=== PATIENT | female | born 1965 | race African-American/Black ===

== ENCOUNTER 2021-06-11 20:12 | Inpatient (IN) | payer OTHER, MEDICAID ==
[~2021-06-11] VITALS: Ht 180.3 cm; Wt 92.6 kg
[2021-06-11 21:56] LABS: Albumin 3.2 g/dL (3.4-5.0); Calcium 7.8 mg/dL (8.5-10.1); Potassium 3.5 mmol/L (3.5-5.1)
[2021-06-11 21:58] LABS: Lactic Acid w/Reflex 4.1 mmol/L (0.4-2.0)
[2021-06-11 21:59] LABS: BUN/Creatinine Ratio 9.1; Basophils # (auto) 0 10 ^3/uL (0-0.2); Basophils % (auto) 0.5 % (0.0-2.0); Eosinophils # (auto) 0 10 ^3/uL (0-0.8); Eosinophils % (auto) 0.6 % (0.0-7.0); Hematocrit 30.1 % (36.0-46.0); Hemoglobin 9.3 g/dL (12.2-16.2); Lymphocytes # (auto) 1.3 10 ^3/uL (0.4-5.4); Lymphocytes % (auto) 16.9 % (10.0-50.0); Mean Corpuscular Hemoglobin 28.6 pg (28.0-32.0); Mean Corpuscular Volume 92.3 fL (80.0-100.0); Monocytes # (auto) 0.5 10 ^3/uL (0-1.3); Monocytes % (auto) 6.5 % (0.0-12.0); Neutrophils % (auto) 75.5 % (37.0-80.0); Nucleated Red Blood Cells % 0.2 %; Red Blood Cells 3.26 10^6/uL (4.0-5.20); Red Cell Distribution Width 25.1 % (11.8-14.3)
[2021-06-11] MEDS ORDERED: SODIUM CHLORIDE 0.9% 1,000 ML IV ONE ×2 (22:00→22:45)
[2021-06-11 22:01] LABS: Bilirubin, Total 0.3 mg/dL (0.2-1.0); Total Protein 6.8 g/dL (6.4-8.2)
[2021-06-11] MEDS ORDERED: cefTRIAXone 1GM/50ML D5W 50 ML IV ONE (22:45)
[2021-06-12] MEDS ORDERED: SODIUM CHLORIDE 0.9% 1,000 ML IV ONE (01:00)
[2021-06-12 01:35] LABS: Urine Bacteria NONE SEEN /hpf (None Seen); Urine Blood Negative /uL (Negative); Urine Mucus FEW (None Seen); Urine Specific Gravity 1.023 (1.001-1.035); Urine WBC 9 /hpf (0 - 5)
[2021-06-12] MEDS ORDERED: ONDANSETRON HCL 4 MG/2 ML VIAL IV ONE (02:00)
[2021-06-12] MEDS ORDERED: PIPERACILLIN-TAZOB 3.375GM 100 ML IV ONE (02:00)
[2021-06-12] MEDS ORDERED: fentaNYL CITRATE 100 MCG/2 ML VL IV ONE (02:00)
[2021-06-12 04:46] LABS: Lactic Acid w/Reflex 3.1 mmol/L (0.4-2.0)
[2021-06-12] MEDS ORDERED: KEP500T PO (05:35)
[2021-06-12] MEDS ORDERED: GABA300C PO (05:35)
[2021-06-12] MEDS ORDERED: DULO20CA PO (05:35)
[2021-06-12] MEDS ORDERED: DABI150C5 PO (05:35)
[2021-06-12] MEDS ORDERED: TOPI50TA32 PO (05:35)
[2021-06-12] MEDS ORDERED: BACL20TA PO (05:35)
[2021-06-12] MEDS ORDERED: ALBUMIN 5% 250 ML IV ONE (06:30)
[2021-06-12] MEDS ORDERED: ONDANSETRON HCL 4 MG/2 ML VIAL IV PRN (06:30)
[2021-06-12 08:04] LABS: INR 1.04 (0.9-1.15)
[2021-06-12] MEDS: PANTOPRAZOLE 40 MG TAB PO SCH (08:05)
[2021-06-12] MEDS: DULoxetine HCL 30 MG CAP PO SCH (08:05)
[2021-06-12] MEDS: TOPIRAMATE 25 MG TAB PO SCH (08:05)
[2021-06-12] MEDS: cefTRIAXone 1GM/50ML D5W 50 ML IV SCH (08:06)
[2021-06-12 08:12] VITALS: BP 104/71
[2021-06-12 09:00] VITALS: BP 104/71
[2021-06-12] MEDS: DABIGATRAN 75 MG CAP PO SCH ×2 (11:00→23:41)
[2021-06-12] MEDS: HYDROmorphone HCL 2 MG/ML VL IV PRN ×3 (12:33→20:55)
[2021-06-12 13:00] VITALS: BP 111/71
[2021-06-12] MEDS: diphenhdrAMINE HCL 25 MG CAP PO PRN (14:22)
[2021-06-12] MEDS: GABAPENTIN 300 MG CAP PO SCH ×2 (14:22→23:41)
[2021-06-12 17:00] VITALS: BP_SYST 107; BP_SYST 140; BP_DIAS 65; BP_DIAS 81
[2021-06-12] MEDS: BACLOFEN 10 MG TAB PO PRN (20:56)
[2021-06-12 22:00] VITALS: BP 106/59
[2021-06-12] MEDS ORDERED: VANCOMYCIN PER PHARMACY 0 MG IV SCH (23:30)
[2021-06-12] MEDS: levETIRAcetam 500 MG TAB PO SCH (23:40)
[2021-06-12] MEDS ORDERED: VANCOMYCIN 1GM/250ML 250 ML IV ONE (23:45)
[2021-06-13] MEDS: HYDROmorphone HCL 2 MG/ML VL IV PRN ×5 (03:11→22:32)
[2021-06-13 05:00] VITALS: BP 163/80
[2021-06-13] MEDS: GABAPENTIN 300 MG CAP PO SCH ×3 (05:27→21:19)
[2021-06-13 06:16] LABS: Basophils # (auto) 0 10 ^3/uL (0-0.2); Basophils % (auto) 0.7 % (0.0-2.0); Eosinophils # (auto) 0.2 10 ^3/uL (0-0.8); Eosinophils % (auto) 3.5 % (0.0-7.0); Hematocrit 31.7 % (36.0-46.0); Hemoglobin 9.9 g/dL (12.2-16.2); Lymphocytes # (auto) 1.7 10 ^3/uL (0.4-5.4); Lymphocytes % (auto) 30.3 % (10.0-50.0); Mean Corpuscular Hemoglobin 28.9 pg (28.0-32.0); Mean Corpuscular Hgb Conc. 31.4 g/dL (32.0-36.0); Mean Corpuscular Volume 91.9 fL (80.0-100.0); Monocytes # (auto) 0.4 10 ^3/uL (0-1.3); Monocytes % (auto) 6.9 % (0.0-12.0); Neutrophils # (auto) 3.3 10 ^3/uL (1.6-8.6); Neutrophils % (auto) 58.6 % (37.0-80.0); Nucleated Red Blood Cells % 0.3 %; Red Blood Cells 3.44 10^6/uL (4.0-5.20); White Blood Cell 5.6 10^3/uL (4.4-10.8)
[2021-06-13 08:12] LABS: Potassium 4.8 mmol/L (3.5-5.1)
[2021-06-13 08:13] LABS: BUN/Creatinine Ratio 8.1; Bilirubin, Total 0.4 mg/dL (0.2-1.0); Calcium 8.7 mg/dL (8.5-10.1); Total Protein 6.4 g/dL (6.4-8.2)
[2021-06-13] MEDS: DABIGATRAN 75 MG CAP PO SCH ×2 (08:52→21:19)
[2021-06-13] MEDS: TOPIRAMATE 25 MG TAB PO SCH (08:52)
[2021-06-13] MEDS: PANTOPRAZOLE 40 MG TAB PO SCH (08:52)
[2021-06-13] MEDS: DULoxetine HCL 30 MG CAP PO SCH (08:52)
[2021-06-13] MEDS: cefTRIAXone 1GM/50ML D5W 50 ML IV SCH (09:06)
[2021-06-13] MEDS: diphenhdrAMINE HCL 25 MG CAP PO PRN ×2 (10:28→23:14)
[2021-06-13] MEDS: VANCOMYCIN 1GM/250ML 250 ML IV SCH ×2 (13:00→23:14)
[2021-06-13] MEDS: BACLOFEN 10 MG TAB PO PRN (16:39)
[2021-06-13 17:00] VITALS: BP 150/88
[2021-06-13] MEDS: levETIRAcetam 500 MG TAB PO SCH (21:19)
[2021-06-13 22:00] VITALS: BP 124/69
[2021-06-14] MEDS: HYDROmorphone HCL 2 MG/ML VL IV PRN ×5 (02:33→21:15)
[2021-06-14 05:00] VITALS: BP 107/62
[2021-06-14] MEDS: GABAPENTIN 300 MG CAP PO SCH ×3 (05:22→21:13)
[2021-06-14] MEDS: cefTRIAXone 1GM/50ML D5W 50 ML IV SCH (08:00)
[2021-06-14 09:00] VITALS: BP 170/78
[2021-06-14] MEDS: VANCOMYCIN 1GM/250ML 250 ML IV SCH ×3 (09:30→19:10)
[2021-06-14] MEDS: DULoxetine HCL 30 MG CAP PO SCH (10:46)
[2021-06-14] MEDS: DABIGATRAN 75 MG CAP PO SCH ×2 (10:47→21:13)
[2021-06-14] MEDS: PANTOPRAZOLE 40 MG TAB PO SCH (10:47)
[2021-06-14] MEDS: TOPIRAMATE 25 MG TAB PO SCH (10:47)
[2021-06-14 13:00] VITALS: BP 109/69
[2021-06-14 17:00] VITALS: BP 105/64
[2021-06-14] MEDS: BACLOFEN 10 MG TAB PO PRN (18:34)
[2021-06-14] MEDS: levETIRAcetam 500 MG TAB PO SCH (21:13)
[2021-06-14] MEDS: diphenhdrAMINE HCL 25 MG CAP PO PRN (21:30)
[2021-06-14 22:00] VITALS: BP 120/74
[2021-06-15] MEDS: HYDROmorphone HCL 2 MG/ML VL IV PRN ×4 (01:18→13:54)
[2021-06-15 05:00] VITALS: BP 108/64
[2021-06-15] MEDS: GABAPENTIN 300 MG CAP PO SCH ×2 (05:23→14:00)
[2021-06-15] MEDS: VANCOMYCIN 1GM/250ML 250 ML IV SCH ×2 (05:24→15:00)
[2021-06-15 09:07] VITALS: BP 118/69
[2021-06-15] MEDS: DABIGATRAN 75 MG CAP PO SCH (09:43)
[2021-06-15] MEDS: DULoxetine HCL 30 MG CAP PO SCH (09:43)
[2021-06-15] MEDS: cefTRIAXone 1GM/50ML D5W 50 ML IV SCH (09:43)
[2021-06-15] MEDS: TOPIRAMATE 25 MG TAB PO SCH (09:43)
[2021-06-15] MEDS: PANTOPRAZOLE 40 MG TAB PO SCH (09:43)
[2021-06-15] MEDS ORDERED: LEVO500T31 PO (10:13)
[2021-06-15] MEDS ORDERED: HYDR4TAB90 PO (10:17)
[2021-06-15 12:45] VITALS: BP 112/64
[2021-06-15 13:00] VITALS: BP 97/64
[2021-06-15 14:24] VITALS: BP 110/72
== END 2021-06-15 17:43 | disposition home or self-care (01) | DRG 872 ==
LOC: ER 20:14 → OVERFLOW 06-12 06:26 → WEST WING 06-12 07:54
PROVIDERS: ADMIT Nurse Practitioner; ATTEND Family Medicine
DX: A41.89 Other specified sepsis (principal); N39.0 Urinary tract infection, site not specified; E44.0 Moderate protein-calorie malnutrition; M79.7 Fibromyalgia; G89.29 Other chronic pain; Z20.822 Contact with and (suspected) exposure to COVID-19; R56.9 Unspecified convulsions; Z86.718 Personal history of other venous thrombosis and embolism; Z79.01 Long term (current) use of anticoagulants; Z86.711 Personal history of pulmonary embolism; Z88.5 Allergy status to narcotic agent; Z88.8 Allergy status to other drugs, medicaments and biological substances; Z68.26 Body mass index [BMI] 26.0-26.9, adult
CPT/HCPCS: 36415; 71045; 74176; 80053; 80202; 81001; 82565; 83605; 83735; 83880; 84484; 85025; 85610; 87040; 87077; 87086; 87186; 93005; 93970; 96361; 96365; 96367; 96375; 99291; G0378; J0696; J2405; J2543

== ENCOUNTER 2021-07-07 20:21 | Emergency (ER) | payer OTHER, MEDICAID ==
[~2021-07-07 20:21] MED LIST: BACL20TA PO; DABI150C5 PO; DULO20CA PO; GABA300C PO; HYDR4TAB90 PO; KEP500T PO; LEVO500T31 PO; TOPI50TA32 PO
[2021-07-07 23:29] LABS: Basophils # (auto) 0 10 ^3/uL (0-0.2); Basophils % (auto) 0.5 % (0.0-2.0); Eosinophils # (auto) 0 10 ^3/uL (0-0.8); Eosinophils % (auto) 0.1 % (0.0-7.0); Hematocrit 29.6 % (36.0-46.0); Hemoglobin 9.3 g/dL (12.2-16.2); Lymphocytes # (auto) 1.1 10 ^3/uL (0.4-5.4); Lymphocytes % (auto) 17.5 % (10.0-50.0); Mean Corpuscular Hemoglobin 28.9 pg (28.0-32.0); Mean Corpuscular Hgb Conc. 31.5 g/dL (32.0-36.0); Mean Corpuscular Volume 91.5 fL (80.0-100.0); Monocytes # (auto) 0.5 10 ^3/uL (0-1.3); Monocytes % (auto) 8.5 % (0.0-12.0); Neutrophils # (auto) 4.7 10 ^3/uL (1.6-8.6); Neutrophils % (auto) 73.4 % (37.0-80.0); Nucleated Red Blood Cells % 0.1 %; Red Blood Cells 3.24 10^6/uL (4.0-5.20); Red Cell Distribution Width 25.9 % (11.8-14.3); White Blood Cell 6.4 10^3/uL (4.4-10.8)
[2021-07-07] MEDS ORDERED: ONDANSETRON HCL 4 MG/2 ML VIAL IV ONE (23:30)
[2021-07-07] MEDS ORDERED: MORPHINE SULFATE INJECTION 2 MG/ML SYRG IV ONE (23:30)
[2021-07-07 23:45] LABS: INR 0.99 (0.9-1.15); Partial Thromboplastin Time 21.1 sec (23.6-33.0)
[2021-07-07 23:50] LABS: Albumin 3.2 g/dL (3.4-5.0); Calcium 7.7 mg/dL (8.5-10.1); Magnesium 2.3 mg/dL (1.6-2.6); Potassium 3.3 mmol/L (3.5-5.1)
[2021-07-07 23:52] LABS: BUN/Creatinine Ratio 10.1
[2021-07-07 23:55] LABS: Bilirubin, Total 0.4 mg/dL (0.2-1.0); Total Protein 6.4 g/dL (6.4-8.2)
[2021-07-08 02:33] LABS: Partial Thromboplastin Time 20.1 sec (23.6-33.0)
[2021-07-08] MEDS ORDERED: fentaNYL CITRATE 100 MCG/2 ML VL IV ONE (02:45)
[2021-07-08] MEDS ORDERED: IOHEXOL 350 MG/ML 100ML IJ ONE (03:06)
[2021-07-08 05:00] VITALS: BP 103/63
== END 2021-07-08 05:15 | disposition left against medical advice (07) ==
LOC: EDBD 20:21 → ER 20:24
DX: R00.0 Tachycardia, unspecified (principal); R22.41 Localized swelling, mass and lump, right lower limb; J44.9 Chronic obstructive pulmonary disease, unspecified; G43.909 Migraine, unspecified, not intractable, without status migrainosus; Z86.718 Personal history of other venous thrombosis and embolism; Z20.822 Contact with and (suspected) exposure to COVID-19
CPT/HCPCS: 36415; 71046; 71275; 80053; 83735; 83880; 84484; 85025; 85379; 85610; 85730; 87426; 93005; 96374; 96375; 99285; J2270; J2405; J3010; Q9967

== ENCOUNTER 2021-11-06 20:34 | Inpatient (IN) | payer OTHER, MEDICAID ==
[~2021-11-06] VITALS: Ht 167.6 cm; Wt 93.7 kg
[2021-11-06] MEDS ORDERED: LORazepam MDV 2MG/ML 10 ML IV ONE (21:12)
[2021-11-06] MEDS ORDERED: levETIRAcetam 500 MG/5ML INJ IV ONE (21:14)
[2021-11-06] MEDS ORDERED: IOHEXOL 350 MG/ML 100ML IJ ONE (21:24)
[2021-11-06 22:02] LABS: BUN/Creatinine Ratio 17.8; Calcium 7.4 mg/dL (8.5-10.1); Potassium 3.4 mmol/L (3.5-5.1)
[2021-11-06 22:04] LABS: Bilirubin, Total 0.2 mg/dL (0.2-1.0); Total Protein 6.3 g/dL (6.4-8.2)
[2021-11-06] MEDS ORDERED: KETAMINE HCL 10 ML ONE (22:23)
[2021-11-06] MEDS ORDERED: KETAMINE 50mg/ML 10ml Vial (500mg/10ml) IM ONE (22:30)
[2021-11-06 23:03] LABS: Amphetamine Screen, Urine NEGATIVE (NEGATIVE); Barbiturate Scree,Urine NEGATIVE (NEGATIVE); Benzodiazephine Screen, Urine POSITIVE (NEGATIVE); Cocaine Screen, Urine NEGATIVE (NEGATIVE); Opiate Scree,Urine NEGATIVE (NEGATIVE); Phencyclidine Screen, Urine NEGATIVE (NEGATIVE)
[2021-11-06 23:10] LABS: Cannabinoid Screen, Urine NEGATIVE (NEGATIVE)
[2021-11-06 23:22] LABS: Mean Corpuscular Hemoglobin 27.1 pg (28.0-32.0); Mean Corpuscular Hgb Conc. 28.2 g/dL (32.0-36.0); Red Blood Cells 3.34 10^6/uL (4.0-5.20); Red Cell Distribution Width 27.6 % (11.8-14.3); White Blood Cell 6.6 10^3/uL (4.4-10.8)
[2021-11-06 23:27] LABS: Basophils % (manual) 0 (0.0-2.0); Blast Cells 0; Metamyelocytes % 0; Myelocytes % 0; Promyelocytes % 0; Reactive Lymphocytes 0
[2021-11-06 23:34] LABS: Urine Bacteria FEW /hpf (None Seen); Urine Blood TRACE /uL (Negative); Urine Hyaline Cast FEW /lpf (0 - 2); Urine Mucus FEW (None Seen); Urine Specific Gravity 1.036 (1.001-1.035); Urine WBC 15 /hpf (0 - 5)
[2021-11-07] VITALS (65 sets, daily range): BP systolic 77–136; BP diastolic 39–73
[2021-11-07] MEDS ORDERED: SODIUM CHLORIDE 0.9% 2,000 ML IV ONE
[2021-11-07] MEDS ORDERED: LORazepam 2MG/ML-1ML VIAL IV ONE ×3
[2021-11-07 00:03] LABS: Band Neutrophils % (manual) 1; Eosinophils % (manual) 1 (0-7); Lymphocytes % (manual) 35 (10.0-50.0); Monocytes % (manual) 2 (0-12)
[2021-11-07] MEDS ORDERED: DOCUSATE SOD 100 MG CAP PO PRN (00:30)
[2021-11-07] MEDS ORDERED: LORazepam 0.5 MG TAB PO PRN (00:30)
[2021-11-07] MEDS ORDERED: ONDANSETRON HCL 4 MG/2 ML VIAL IV PRN (00:30)
[2021-11-07] MEDS: SODIUM CHLORIDE 0.9% 1,000 ML IV SCH ×2 (00:59→17:19)
[2021-11-07] MEDS: levoFLOXacin 500MG 100 ML IV SCH ×2 (01:55→21:35)
[2021-11-07] MEDS: NOREPINEPHRINE 8 MG/250ML KIT 250 ML IV SCH ×2 (02:36→13:22)
[2021-11-07 04:33] LABS: Eosinophils # (auto) 0 10 ^3/uL (0-0.8); Hemoglobin 8.8 g/dL (12.2-16.2); Mean Corpuscular Hemoglobin 27.7 pg (28.0-32.0); Nucleated Red Blood Cells % 0.1 %
[2021-11-07 04:36] LABS: Basophils # (auto) 0.1 10 ^3/uL (0-0.2); Basophils % (auto) 0.8 % (0.0-2.0); Eosinophils % (auto) 0.1 % (0.0-7.0); Hematocrit 30.1 % (36.0-46.0); Lymphocytes # (auto) 0.8 10 ^3/uL (0.4-5.4); Lymphocytes % (auto) 9.1 % (10.0-50.0); Mean Corpuscular Hgb Conc. 29.2 g/dL (32.0-36.0); Mean Corpuscular Volume 94.9 fL (80.0-100.0); Monocytes # (auto) 0.4 10 ^3/uL (0-1.3); Monocytes % (auto) 4.8 % (0.0-12.0); Neutrophils # (auto) 7.6 10 ^3/uL (1.6-8.6); Neutrophils % (auto) 85.2 % (37.0-80.0); Red Blood Cells 3.18 10^6/uL (4.0-5.20)
[2021-11-07 04:38] LABS: Red Cell Distribution Width 26.5 % (11.8-14.3)
[2021-11-07 05:08] LABS: BUN/Creatinine Ratio 20.3; Calcium 7.5 mg/dL (8.5-10.1); Potassium 3.8 mmol/L (3.5-5.1)
[2021-11-07] MEDS: LORazepam 2MG/ML-1ML VIAL IV PRN ×5 (06:50→22:05)
[2021-11-07] MEDS ORDERED: TOPI50TA53 PO (11:17)
[2021-11-07] MEDS ORDERED: LEVE500T32 PO (11:38)
[2021-11-07] MEDS ORDERED: DABI150C5 PO (11:41)
[2021-11-07] MEDS ORDERED: PANT40TA2 PO (11:43)
[2021-11-07] MEDS ORDERED: ONDA-144 PO (11:43)
[2021-11-07] MEDS ORDERED: HYDROcodone-ACET 5/325MG TAB PO PRN (11:45)
[2021-11-07] MEDS ORDERED: PANTOPRAZOLE 40 MG TAB PO ONE (11:45)
[2021-11-07] MEDS ORDERED: SUMA50TA2 PO (11:45)
[2021-11-07] MEDS ORDERED: THIAMINE 100mg/ml INJ (200mg/2ml VIAL) IV ONE (11:45)
[2021-11-07] MEDS ORDERED: chlordiazePOXIDE HCL 5 MG CAP PO PRN (11:45)
[2021-11-07] MEDS ORDERED: HYDROcodone-ACET 5/325MG TAB PO ONE (11:45)
[2021-11-07] MEDS: GABAPENTIN 300 MG CAP PO SCH ×2 (13:20→21:33)
[2021-11-07] MEDS: PANTOPRAZOLE 40 MG TAB PO SCH (21:33)
[2021-11-07] MEDS: TOPIRAMATE 100 MG TAB PO SCH (22:10)
[2021-11-07] MEDS ORDERED: NITROGLYCERIN 0.4 MG SL TAB SL PRN (23:15)
[2021-11-08] VITALS (91 sets, daily range): BP systolic 85–118; BP diastolic 46–68
[2021-11-08 03:42] LABS: Eosinophils # (auto) 0.1 10 ^3/uL (0-0.8); Hematocrit 25.1 % (36.0-46.0); Hemoglobin 7.6 g/dL (12.2-16.2); Lymphocytes # (auto) 1.4 10 ^3/uL (0.4-5.4)
[2021-11-08 03:44] LABS: Basophils # (auto) 0.1 10 ^3/uL (0-0.2); Basophils % (auto) 0.9 % (0.0-2.0); Eosinophils % (auto) 1.2 % (0.0-7.0); Lymphocytes % (auto) 24.8 % (10.0-50.0); Mean Corpuscular Hemoglobin 27.8 pg (28.0-32.0); Mean Corpuscular Hgb Conc. 30.2 g/dL (32.0-36.0); Mean Corpuscular Volume 92.3 fL (80.0-100.0); Monocytes # (auto) 0.6 10 ^3/uL (0-1.3); Monocytes % (auto) 10.7 % (0.0-12.0); Neutrophils # (auto) 3.5 10 ^3/uL (1.6-8.6); Neutrophils % (auto) 62.4 % (37.0-80.0); Nucleated Red Blood Cells % 0.2 %; Red Blood Cells 2.72 10^6/uL (4.0-5.20); White Blood Cell 5.7 10^3/uL (4.4-10.8)
[2021-11-08 03:54] LABS: Red Cell Distribution Width 27.6 % (11.8-14.3)
[2021-11-08 03:56] LABS: Albumin 2.5 g/dL (3.4-5.0); BUN/Creatinine Ratio 15.6; Calcium 7.6 mg/dL (8.5-10.1); Potassium 3.9 mmol/L (3.5-5.1)
[2021-11-08 04:00] LABS: Bilirubin, Total 0.5 mg/dL (0.2-1.0); Total Protein 5.3 g/dL (6.4-8.2)
[2021-11-08] MEDS: GABAPENTIN 300 MG CAP PO SCH ×3 (06:32→22:36)
[2021-11-08] MEDS: NOREPINEPHRINE 8 MG/250ML KIT 250 ML IV SCH ×2 (07:48→19:56)
[2021-11-08] MEDS ORDERED: ENOXAPARIN SOD 40 MG/0.4 ML SYRINGE SC ONE (10:00)
[2021-11-08] MEDS ORDERED: SUCRALFATE 1 GM/10 ML ORAL SUSP PO ONE (10:00)
[2021-11-08] MEDS: HYDROmorphone HCL 2 MG/ML VL/or syr IV PRN ×2 (10:01→20:53)
[2021-11-08] MEDS: TOPIRAMATE 100 MG TAB PO SCH ×2 (10:12→22:26)
[2021-11-08] MEDS: PANTOPRAZOLE 40 MG TAB PO SCH ×2 (10:13→22:26)
[2021-11-08] MEDS: THIAMINE 100mg/ml INJ (200mg/2ml VIAL) IV SCH (10:13)
[2021-11-08] MEDS ORDERED: SODIUM CHLORIDE 0.9% 250 ML IV ONE (10:15)
[2021-11-08] MEDS: SODIUM CHLORIDE 0.9% 1,000 ML IV SCH ×2 (10:15→22:06)
[2021-11-08] MEDS: LORazepam 2MG/ML-1ML VIAL IV PRN ×3 (12:05→16:30)
[2021-11-08] MEDS ORDERED: NALBUPHINE HCL 10 MG/1ml INJECTION IV ONE (12:15)
[2021-11-08] MEDS ORDERED: NALBUPHINE HCL 10 MG/1ml INJECTION IV PRN (12:45)
[2021-11-08] MEDS: SUCRALFATE 1 GM/10 ML ORAL SUSP PO SCH (17:00)
[2021-11-08] MEDS: levoFLOXacin 500MG 100 ML IV SCH (22:22)
[2021-11-09] VITALS (93 sets, daily range): BP systolic 75–119; BP diastolic 45–73
[2021-11-09] MEDS: HYDROmorphone HCL 2 MG/ML VL/or syr IV PRN ×4 (04:30→22:02)
[2021-11-09] MEDS: GABAPENTIN 300 MG CAP PO SCH ×3 (06:01→22:00)
[2021-11-09] MEDS: SUCRALFATE 1 GM/10 ML ORAL SUSP PO SCH ×3 (06:01→16:51)
[2021-11-09] MEDS: PANTOPRAZOLE 40 MG TAB PO SCH ×2 (09:08→22:01)
[2021-11-09] MEDS: SODIUM CHLORIDE 0.9% 1,000 ML IV SCH ×2 (09:08→16:17)
[2021-11-09] MEDS: THIAMINE 100mg/ml INJ (200mg/2ml VIAL) IV SCH (09:08)
[2021-11-09] MEDS: TOPIRAMATE 100 MG TAB PO SCH ×2 (09:08→22:01)
[2021-11-09 09:46] LABS: Basophils # (auto) 0.1 10 ^3/uL (0-0.2); Eosinophils # (auto) 0.2 10 ^3/uL (0-0.8); Lymphocytes # (auto) 1.2 10 ^3/uL (0.4-5.4); Monocytes # (auto) 0.4 10 ^3/uL (0-1.3); White Blood Cell 4.7 10^3/uL (4.4-10.8)
[2021-11-09 09:48] LABS: Basophils % (auto) 1.3 % (0.0-2.0); Hematocrit 27.5 % (36.0-46.0); Hemoglobin 8.2 g/dL (12.2-16.2); Lymphocytes % (auto) 25.7 % (10.0-50.0); Mean Corpuscular Hemoglobin 28.3 pg (28.0-32.0); Mean Corpuscular Hgb Conc. 29.7 g/dL (32.0-36.0); Mean Corpuscular Volume 95.1 fL (80.0-100.0); Monocytes % (auto) 9.4 % (0.0-12.0); Neutrophils # (auto) 2.8 10 ^3/uL (1.6-8.6); Neutrophils % (auto) 59.6 % (37.0-80.0); Red Blood Cells 2.89 10^6/uL (4.0-5.20); Red Cell Distribution Width 27.5 % (11.8-14.3)
[2021-11-09] MEDS ORDERED: ENOXAPARIN SOD 40 MG/0.4 ML SYRINGE SC SCH (10:00)
[2021-11-09 10:42] LABS: Albumin 2.6 g/dL (3.4-5.0); Calcium 7.7 mg/dL (8.5-10.1)
[2021-11-09 10:45] LABS: BUN/Creatinine Ratio 6.5; Bilirubin, Total 0.6 mg/dL (0.2-1.0); Potassium 4.2 mmol/L (3.5-5.1); Total Protein 5.6 g/dL (6.4-8.2)
[2021-11-09] MEDS: NOREPINEPHRINE 8 MG/250ML KIT 250 ML IV SCH (10:46)
[2021-11-09] MEDS: LORazepam 2MG/ML-1ML VIAL IV PRN ×3 (12:17→17:26)
[2021-11-09] MEDS ORDERED: ERTAPENEM SOD INJ 1 GM in SODIUM CHL 0.9% 50 ML IV ONE (15:15)
[2021-11-09] MEDS ORDERED: Ensure HIGH Protein Chocolate 8oz Bottle PO SCH (18:00)
[2021-11-09] MEDS: Glucerna Carbsteady SHAKE Vanilla 8oz PO SCH (18:01)
[2021-11-09] MEDS: levETIRAcetam 500 MG TAB PO SCH (22:00)
[2021-11-10] VITALS (82 sets, daily range): BP systolic 81–108; BP diastolic 42–72
[2021-11-10] MEDS: SODIUM CHLORIDE 0.9% 1,000 ML IV SCH (03:45)
[2021-11-10] MEDS: NOREPINEPHRINE 8 MG/250ML KIT 250 ML IV SCH ×2 (04:43→21:12)
[2021-11-10] MEDS: SUCRALFATE 1 GM/10 ML ORAL SUSP PO SCH ×3 (06:15→17:03)
[2021-11-10] MEDS: HYDROmorphone HCL 2 MG/ML VL/or syr IV PRN ×3 (06:15→17:04)
[2021-11-10] MEDS: GABAPENTIN 300 MG CAP PO SCH ×3 (06:16→21:10)
[2021-11-10] MEDS: levETIRAcetam 500 MG TAB PO SCH ×2 (06:16→21:10)
[2021-11-10] MEDS ORDERED: SODIUM CHLORIDE LOCK 0 ML ONE (08:52)
[2021-11-10] MEDS ORDERED: LIDOCAINE VISCOUS 2% 15ML UD ONE (08:52)
[2021-11-10] MEDS ORDERED: MIDAZOLAM HCL 5 MG/ML-1ML VIAL ONE (08:52)
[2021-11-10] MEDS ORDERED: fentaNYL CITRATE 100 MCG/2 ML VL ONE (08:53)
[2021-11-10] MEDS ORDERED: diphenhdrAMINE HCL 50 MG/1 ML VL ONE (08:53)
[2021-11-10] MEDS: THIAMINE 100mg/ml INJ (200mg/2ml VIAL) IV SCH (09:01)
[2021-11-10] MEDS: ERTAPENEM SOD INJ 1 GM in SODIUM CHL 0.9% 50 ML IV SCH (09:01)
[2021-11-10] MEDS: PANTOPRAZOLE 40 MG TAB PO SCH ×2 (09:01→21:10)
[2021-11-10] MEDS: Glucerna Carbsteady SHAKE Vanilla 8oz PO SCH ×3 (09:01→19:22)
[2021-11-10] MEDS: TOPIRAMATE 100 MG TAB PO SCH ×2 (09:02→21:11)
[2021-11-10 09:49] LABS: INR 0.94 (0.9-1.15); Partial Thromboplastin Time 23.8 sec (24.6-33.4)
[2021-11-10 10:07] LABS: BUN/Creatinine Ratio 8.3; Calcium 7.7 mg/dL (8.5-10.1); Potassium 3.7 mmol/L (3.5-5.1)
[2021-11-10 10:18] LABS: Folate (Folic Acid) 5.56 ng/mL (5.38-24)
[2021-11-10 10:28] LABS: % Iron Saturation 7.8 % (15-50)
[2021-11-10 10:41] LABS: Basophils # (auto) 0.2 10 ^3/uL (0-0.2); Basophils % (auto) 2.9 % (0.0-2.0); Eosinophils # (auto) 0.3 10 ^3/uL (0-0.8); Hematocrit 28.1 % (36.0-46.0); Hemoglobin 8.2 g/dL (12.2-16.2); Lymphocytes # (auto) 1.1 10 ^3/uL (0.4-5.4); Lymphocytes % (auto) 20.7 % (10.0-50.0); Mean Corpuscular Hemoglobin 28.7 pg (28.0-32.0); Mean Corpuscular Hgb Conc. 29.2 g/dL (32.0-36.0); Mean Corpuscular Volume 98.1 fL (80.0-100.0); Monocytes # (auto) 0.5 10 ^3/uL (0-1.3); Monocytes % (auto) 8.8 % (0.0-12.0); Neutrophils # (auto) 3.4 10 ^3/uL (1.6-8.6); Neutrophils % (auto) 62.6 % (37.0-80.0); Nucleated Red Blood Cells % 0.1 %; Red Blood Cells 2.87 10^6/uL (4.0-5.20); White Blood Cell 5.5 10^3/uL (4.4-10.8)
[2021-11-10] MEDS ORDERED: FUROSEMIDE 20 MG/2 ML VIAL IV ONE (11:45)
[2021-11-10] MEDS ORDERED: POTASSIUM CHL 20 Meq TABLET PO ONE (11:45)
[2021-11-10] MEDS ORDERED: FOLIC ACID 1 MG in D5W 5% 50 ML INJ ONE (11:45)
[2021-11-10] MEDS ORDERED: CYANOCOBALAMIN (B-12) 1000 MCG/1 ML VIAL IM ONE (11:45)
[2021-11-11] VITALS (93 sets, daily range): BP systolic 77–122; BP diastolic 39–73
[2021-11-11] MEDS: GABAPENTIN 300 MG CAP PO SCH ×3 (05:45→22:18)
[2021-11-11] MEDS: SUCRALFATE 1 GM/10 ML ORAL SUSP PO SCH ×3 (06:09→14:53)
[2021-11-11] MEDS: levETIRAcetam 500 MG TAB PO SCH ×2 (06:10→22:18)
[2021-11-11] MEDS: Glucerna Carbsteady SHAKE Vanilla 8oz PO SCH ×3 (07:45→16:57)
[2021-11-11 08:41] LABS: Basophils # (auto) 0 10 ^3/uL (0-0.2); Basophils % (auto) 0.2 % (0.0-2.0); Eosinophils # (auto) 0.3 10 ^3/uL (0-0.8); Eosinophils % (auto) 6.1 % (0.0-7.0); Hematocrit 26.4 % (36.0-46.0); Hemoglobin 8.1 g/dL (12.2-16.2); Lymphocytes # (auto) 0.9 10 ^3/uL (0.4-5.4); Lymphocytes % (auto) 19.9 % (10.0-50.0); Mean Corpuscular Hemoglobin 28.2 pg (28.0-32.0); Mean Corpuscular Hgb Conc. 30.7 g/dL (32.0-36.0); Mean Corpuscular Volume 91.8 fL (80.0-100.0); Monocytes # (auto) 0.4 10 ^3/uL (0-1.3); Monocytes % (auto) 7.7 % (0.0-12.0); Neutrophils # (auto) 3.1 10 ^3/uL (1.6-8.6); Neutrophils % (auto) 66.1 % (37.0-80.0); Nucleated Red Blood Cells % 0.1 %; Red Blood Cells 2.87 10^6/uL (4.0-5.20); White Blood Cell 4.8 10^3/uL (4.4-10.8)
[2021-11-11 08:42] LABS: Red Cell Distribution Width 26.9 % (11.8-14.3)
[2021-11-11] MEDS: THIAMINE 100mg/ml INJ (200mg/2ml VIAL) IV SCH (09:00)
[2021-11-11] MEDS: HYDROmorphone HCL 2 MG/ML VL/or syr IV PRN ×2 (09:00→16:57)
[2021-11-11] MEDS: TOPIRAMATE 100 MG TAB PO SCH ×2 (09:01→22:18)
[2021-11-11] MEDS: ERTAPENEM SOD INJ 1 GM in SODIUM CHL 0.9% 50 ML IV SCH (09:02)
[2021-11-11] MEDS: PANTOPRAZOLE 40 MG TAB PO SCH ×2 (09:02→22:18)
[2021-11-11] MEDS: FOLIC ACID 1 MG in D5W 5% 50 ML INJ SCH (09:36)
[2021-11-11 09:40] LABS: Potassium 3.9 mmol/L (3.5-5.1)
[2021-11-11 09:41] LABS: BUN/Creatinine Ratio 12.2; Calcium 7.9 mg/dL (8.5-10.1)
[2021-11-11] MEDS: CYANOCOBALAMIN (B-12) 1000 MCG/1 ML VIAL IM SCH (09:42)
[2021-11-11 10:39] LABS: Magnesium 1.8 mg/dL (1.6-2.6)
[2021-11-11] MEDS ORDERED: MORPHINE SULFATE INJ 2 MG/ml SYRG IV ONE (11:45)
[2021-11-11] MEDS ORDERED: MAGNESIUM SULFATE 1GM/100ML 100 ML IV ONE (12:00)
[2021-11-11] MEDS ORDERED: MIDODRINE HCL 10 MG TAB PO ONE (14:00)
[2021-11-11] MEDS: NOREPINEPHRINE 8 MG/250ML KIT 250 ML IV SCH (14:53)
[2021-11-11] MEDS: MIDODRINE HCL 10 MG TAB PO SCH (18:28)
[2021-11-11] MEDS: MORPHINE SULFATE INJ 2 MG/ml SYRG IV PRN (20:07)
[2021-11-12] VITALS (84 sets, daily range): BP systolic 74–111; BP diastolic 41–70
[2021-11-12] MEDS: MORPHINE SULFATE INJ 2 MG/ml SYRG IV PRN ×3 (04:03→23:23)
[2021-11-12 04:35] LABS: BUN/Creatinine Ratio 17.4; Calcium 8.1 mg/dL (8.5-10.1); Potassium 3.8 mmol/L (3.5-5.1)
[2021-11-12] MEDS: SUCRALFATE 1 GM/10 ML ORAL SUSP PO SCH ×3 (06:05→17:52)
[2021-11-12] MEDS: MIDODRINE HCL 10 MG TAB PO SCH (06:05)
[2021-11-12] MEDS: levETIRAcetam 500 MG TAB PO SCH ×2 (06:05→22:19)
[2021-11-12] MEDS: GABAPENTIN 300 MG CAP PO SCH ×3 (06:05→22:20)
[2021-11-12] MEDS: NOREPINEPHRINE 8 MG/250ML KIT 250 ML IV SCH ×2 (07:54→20:56)
[2021-11-12] MEDS: Glucerna Carbsteady SHAKE Vanilla 8oz PO SCH ×3 (08:00→17:52)
[2021-11-12] MEDS: TOPIRAMATE 100 MG TAB PO SCH ×2 (10:00→22:20)
[2021-11-12] MEDS: PANTOPRAZOLE 40 MG TAB PO SCH ×2 (10:00→22:20)
[2021-11-12] MEDS: THIAMINE HCL 100 MG TAB PO SCH (10:00)
[2021-11-12] MEDS: CYANOCOBALAMIN (B-12) 1000 MCG/1 ML VIAL IM SCH (10:19)
[2021-11-12] MEDS: FOLIC ACID 1 MG in D5W 5% 50 ML INJ SCH (10:20)
[2021-11-12] MEDS: ERTAPENEM SOD INJ 1 GM in SODIUM CHL 0.9% 50 ML IV SCH (10:20)
[2021-11-12] MEDS ORDERED: fentaNYL CITRATE 100 MCG/2 ML VL ONE (11:44)
[2021-11-12] MEDS ORDERED: MIDAZOLAM HCL 2MG/2ML 2ml VIAL (1mg/ml) ONE (11:44)
[2021-11-12] MEDS ORDERED: LIDOCAINE 2% (LOCAL ANESTH.) PF 5ml SDV ONE (11:45)
[2021-11-12] MEDS ORDERED: ONDANSETRON HCL 4 MG/2 ML VIAL ONE (11:45)
[2021-11-12] MEDS ORDERED: ONDANSETRON HCL 4 MG/2 ML VIAL IV PRN (12:30)
[2021-11-12] MEDS ORDERED: HYDROCORTISONE SOD SUCC 100 MG/2ML INJ VIAL IV ONE (12:45)
[2021-11-12] MEDS ORDERED: ONDANSETRON HCL 4 MG/2 ML VIAL IV ONE (13:46)
[2021-11-12] MEDS ORDERED: LIDOCAINE 2% (LOCAL ANESTH.) PF 5ml SDV IJ ONE (13:46)
[2021-11-12] MEDS ORDERED: PROPOFOL 10 MG/ML 20 ML IV ONE (13:46)
[2021-11-12] MEDS ORDERED: KETAMINE 50mg/ML 10ml Vial (500mg/10ml) IV ONE (13:46)
[2021-11-12] MEDS: HYDROmorphone HCL 2 MG/ML VL/or syr IV PRN ×2 (15:33→20:36)
[2021-11-12] MEDS: HYDROCORTISONE SOD SUCC 100 MG/2ML INJ VIAL IV SCH (22:19)
[2021-11-13] VITALS (92 sets, daily range): BP systolic 86–120; BP diastolic 49–72
[2021-11-13] MEDS: SUCRALFATE 1 GM/10 ML ORAL SUSP PO SCH ×3 (06:03→17:27)
[2021-11-13] MEDS: GABAPENTIN 300 MG CAP PO SCH ×3 (06:03→22:27)
[2021-11-13] MEDS: levETIRAcetam 500 MG TAB PO SCH ×2 (06:03→22:27)
[2021-11-13] MEDS: MORPHINE SULFATE INJ 2 MG/ml SYRG IV PRN ×4 (07:25→22:26)
[2021-11-13] MEDS: Glucerna Carbsteady SHAKE Vanilla 8oz PO SCH ×3 (08:43→18:45)
[2021-11-13] MEDS: HYDROmorphone HCL 2 MG/ML VL/or syr IV PRN ×3 (08:58→19:57)
[2021-11-13] MEDS: HYDROCORTISONE SOD SUCC 100 MG/2ML INJ VIAL IV SCH ×2 (08:58→22:00)
[2021-11-13] MEDS: THIAMINE HCL 100 MG TAB PO SCH (08:59)
[2021-11-13] MEDS: PANTOPRAZOLE 40 MG TAB PO SCH ×2 (08:59→22:28)
[2021-11-13] MEDS: ERTAPENEM SOD INJ 1 GM in SODIUM CHL 0.9% 50 ML IV SCH (09:37)
[2021-11-13] MEDS: FOLIC ACID 1 MG in D5W 5% 50 ML INJ SCH (09:38)
[2021-11-13] MEDS: TOPIRAMATE 100 MG TAB PO SCH ×2 (09:39→22:28)
[2021-11-13] MEDS: NOREPINEPHRINE 8 MG/250ML KIT 250 ML IV SCH ×2 (10:40→20:00)
[2021-11-13] MEDS: CYANOCOBALAMIN (B-12) 1000 MCG/1 ML VIAL IM SCH (12:23)
[2021-11-13] MEDS ORDERED: SODIUM FERR GLUC 62.5MG/5ML 125 MG in SODIUM CHL 0.9% 100 ML IV ONE (17:00)
[2021-11-14] VITALS (95 sets, daily range): BP systolic 81–114; BP diastolic 44–72
[2021-11-14] MEDS: HYDROmorphone HCL 2 MG/ML VL/or syr IV PRN ×4 (03:44→22:09)
[2021-11-14] MEDS: MORPHINE SULFATE INJ 2 MG/ml SYRG IV PRN ×3 (03:46→19:54)
[2021-11-14] MEDS: NOREPINEPHRINE 8 MG/250ML KIT 250 ML IV SCH ×2 (04:00→18:51)
[2021-11-14] MEDS: GABAPENTIN 300 MG CAP PO SCH ×3 (06:18→22:05)
[2021-11-14] MEDS: SUCRALFATE 1 GM/10 ML ORAL SUSP PO SCH ×3 (06:19→16:30)
[2021-11-14] MEDS: levETIRAcetam 500 MG TAB PO SCH ×2 (06:20→22:05)
[2021-11-14] MEDS: Glucerna Carbsteady SHAKE Vanilla 8oz PO SCH ×3 (08:00→18:41)
[2021-11-14] MEDS: PANTOPRAZOLE 40 MG TAB PO SCH ×2 (10:17→22:05)
[2021-11-14] MEDS: HYDROCORTISONE SOD SUCC 100 MG/2ML INJ VIAL IV SCH ×2 (10:17→22:04)
[2021-11-14] MEDS: THIAMINE HCL 100 MG TAB PO SCH (10:17)
[2021-11-14] MEDS: TOPIRAMATE 100 MG TAB PO SCH ×2 (10:17→22:05)
[2021-11-14] MEDS: FOLIC ACID 1 MG in D5W 5% 50 ML INJ SCH (10:18)
[2021-11-14] MEDS: ERTAPENEM SOD INJ 1 GM in SODIUM CHL 0.9% 50 ML IV SCH (10:18)
[2021-11-14 12:09] LABS: Basophils # (auto) 0 10 ^3/uL (0-0.2); Monocytes # (auto) 0.5 10 ^3/uL (0-1.3); White Blood Cell 7.6 10^3/uL (4.4-10.8)
[2021-11-14 12:11] LABS: Basophils % (auto) 0.5 % (0.0-2.0); Eosinophils # (auto) 0 10 ^3/uL (0-0.8); Eosinophils % (auto) 0.1 % (0.0-7.0); Hematocrit 29.7 % (36.0-46.0); Lymphocytes % (auto) 12.6 % (10.0-50.0); Mean Corpuscular Hemoglobin 27.9 pg (28.0-32.0); Mean Corpuscular Hgb Conc. 30.2 g/dL (32.0-36.0); Mean Corpuscular Volume 92.2 fL (80.0-100.0); Monocytes % (auto) 6.2 % (0.0-12.0); Neutrophils # (auto) 6.1 10 ^3/uL (1.6-8.6); Neutrophils % (auto) 80.6 % (37.0-80.0); Nucleated Red Blood Cells % 0.4 %; Red Blood Cells 3.22 10^6/uL (4.0-5.20)
[2021-11-14 12:17] LABS: Albumin 2.8 g/dL (3.4-5.0); Calcium 8.2 mg/dL (8.5-10.1); Potassium 3.7 mmol/L (3.5-5.1)
[2021-11-14 12:20] LABS: BUN/Creatinine Ratio 11.5; Bilirubin, Total 0.2 mg/dL (0.2-1.0); Total Protein 6.6 g/dL (6.4-8.2)
[2021-11-14 12:26] LABS: Red Cell Distribution Width 27.4 % (11.8-14.3)
[2021-11-14] MEDS: SODIUM FERR GLUC 62.5MG/5ML 125 MG in SODIUM CHL 0.9% 100 ML IV SCH (15:08)
[2021-11-14] MEDS: ENOXAPARIN SOD 80 MG/0.8ML SYRINGE SC SCH (22:05)
[2021-11-15] VITALS (95 sets, daily range): BP systolic 79–127; BP diastolic 42–70
[2021-11-15] MEDS: MIDODRINE HCL 10 MG TAB PO SCH ×3 (06:00→17:28)
[2021-11-15] MEDS: SUCRALFATE 1 GM/10 ML ORAL SUSP PO SCH ×3 (06:08→17:28)
[2021-11-15] MEDS: levETIRAcetam 500 MG TAB PO SCH ×2 (06:08→21:40)
[2021-11-15] MEDS: GABAPENTIN 300 MG CAP PO SCH ×3 (06:08→21:40)
[2021-11-15] MEDS: MORPHINE SULFATE INJ 2 MG/ml SYRG IV PRN ×4 (06:44→19:33)
[2021-11-15] MEDS: NOREPINEPHRINE 8 MG/250ML KIT 250 ML IV SCH ×2 (06:47→18:10)
[2021-11-15] MEDS: HYDROmorphone HCL 2 MG/ML VL/or syr IV PRN ×4 (07:44→22:03)
[2021-11-15] MEDS: Glucerna Carbsteady SHAKE Vanilla 8oz PO SCH ×3 (08:00→18:16)
[2021-11-15] MEDS: FOLIC ACID 1 MG in D5W 5% 50 ML INJ SCH (08:43)
[2021-11-15] MEDS: CYANOCOBALAMIN 500 MCG TAB PO SCH (09:29)
[2021-11-15] MEDS: ERTAPENEM SOD INJ 1 GM in SODIUM CHL 0.9% 50 ML IV SCH (09:29)
[2021-11-15] MEDS: PANTOPRAZOLE 40 MG TAB PO SCH ×2 (09:29→21:40)
[2021-11-15] MEDS: THIAMINE HCL 100 MG TAB PO SCH (09:29)
[2021-11-15] MEDS: HYDROCORTISONE SOD SUCC 100 MG/2ML INJ VIAL IV SCH ×2 (09:30→21:40)
[2021-11-15] MEDS: ENOXAPARIN SOD 80 MG/0.8ML SYRINGE SC SCH (09:30)
[2021-11-15] MEDS: TOPIRAMATE 100 MG TAB PO SCH ×2 (09:30→21:40)
[2021-11-15] MEDS: SODIUM FERR GLUC 62.5MG/5ML 125 MG in SODIUM CHL 0.9% 100 ML IV SCH (11:52)
[2021-11-15] MEDS ORDERED: MIDODRINE HCL 10 MG TAB PO ONE (15:00)
[2021-11-15 15:43] LABS: INR 0.97 (0.9-1.15); Partial Thromboplastin Time 34.1 sec (24.6-33.4)
[2021-11-15] MEDS: DABIGATRAN 75 MG CAP PO SCH (22:03)
[2021-11-16] VITALS (85 sets, daily range): BP systolic 68–116; BP diastolic 38–77
[2021-11-16] MEDS: MORPHINE SULFATE INJ 2 MG/ml SYRG IV PRN ×5 (00:15→22:04)
[2021-11-16] MEDS: HYDROmorphone HCL 2 MG/ML VL/or syr IV PRN ×3 (03:58→12:49)
[2021-11-16 04:02] LABS: Basophils # (auto) 0 10 ^3/uL (0-0.2); Basophils % (auto) 0.2 % (0.0-2.0); Eosinophils # (auto) 0 10 ^3/uL (0-0.8); Eosinophils % (auto) 0.3 % (0.0-7.0); Hematocrit 26.3 % (36.0-46.0); Hemoglobin 8.2 g/dL (12.2-16.2); Lymphocytes # (auto) 1.1 10 ^3/uL (0.4-5.4); Lymphocytes % (auto) 10.6 % (10.0-50.0); Mean Corpuscular Hemoglobin 28.7 pg (28.0-32.0); Mean Corpuscular Hgb Conc. 31.1 g/dL (32.0-36.0); Mean Corpuscular Volume 92.4 fL (80.0-100.0); Monocytes # (auto) 0.7 10 ^3/uL (0-1.3); Monocytes % (auto) 6.9 % (0.0-12.0); Neutrophils # (auto) 8.7 10 ^3/uL (1.6-8.6); Nucleated Red Blood Cells % 0.3 %; Red Blood Cells 2.85 10^6/uL (4.0-5.20); White Blood Cell 10.7 10^3/uL (4.4-10.8)
[2021-11-16 04:04] LABS: Red Cell Distribution Width 27.7 % (11.8-14.3)
[2021-11-16 04:19] LABS: BUN/Creatinine Ratio 14.5; Calcium 7.9 mg/dL (8.5-10.1); Potassium 3.8 mmol/L (3.5-5.1)
[2021-11-16] MEDS: GABAPENTIN 300 MG CAP PO SCH ×3 (06:13→22:06)
[2021-11-16] MEDS: MIDODRINE HCL 10 MG TAB PO SCH ×3 (06:13→18:53)
[2021-11-16] MEDS: SUCRALFATE 1 GM/10 ML ORAL SUSP PO SCH ×3 (07:36→17:03)
[2021-11-16] MEDS: levETIRAcetam 500 MG TAB PO SCH ×2 (07:36→22:06)
[2021-11-16] MEDS: Glucerna Carbsteady SHAKE Vanilla 8oz PO SCH ×3 (08:09→18:55)
[2021-11-16] MEDS: HYDROCORTISONE SOD SUCC 100 MG/2ML INJ VIAL IV SCH ×2 (10:36→21:56)
[2021-11-16] MEDS: CYANOCOBALAMIN 500 MCG TAB PO SCH (10:37)
[2021-11-16] MEDS: PANTOPRAZOLE 40 MG TAB PO SCH ×2 (10:37→22:07)
[2021-11-16] MEDS: THIAMINE HCL 100 MG TAB PO SCH (10:37)
[2021-11-16] MEDS: DABIGATRAN 75 MG CAP PO SCH ×2 (10:37→22:07)
[2021-11-16] MEDS: TOPIRAMATE 100 MG TAB PO SCH ×2 (10:38→22:07)
[2021-11-16] MEDS: ERTAPENEM SOD INJ 1 GM in SODIUM CHL 0.9% 50 ML IV SCH (10:59)
[2021-11-16] MEDS: FOLIC ACID 1 MG TAB PO SCH (11:08)
[2021-11-16] MEDS ORDERED: SODIUM CHLORIDE 0.9% 250 ML IV ONE ×2 (13:30→14:20)
[2021-11-16] MEDS: SODIUM FERR GLUC 62.5MG/5ML 125 MG in SODIUM CHL 0.9% 100 ML IV SCH (13:30)
[2021-11-16] MEDS: traMADol HCL 50 MG TAB PO PRN (16:54)
[2021-11-17] VITALS (72 sets, daily range): BP systolic 67–112; BP diastolic 35–63
[2021-11-17] MEDS: MORPHINE SULFATE INJ 2 MG/ml SYRG IV PRN ×5 (03:55→19:47)
[2021-11-17] MEDS ORDERED: ALBUMIN 5% 250 ML IV ONE (04:45)
[2021-11-17] MEDS: levETIRAcetam 500 MG TAB PO SCH ×2 (06:03→21:47)
[2021-11-17] MEDS: GABAPENTIN 300 MG CAP PO SCH ×3 (06:03→21:46)
[2021-11-17] MEDS: MIDODRINE HCL 10 MG TAB PO SCH ×3 (06:04→18:00)
[2021-11-17] MEDS: SUCRALFATE 1 GM/10 ML ORAL SUSP PO SCH ×3 (06:04→16:49)
[2021-11-17] MEDS: NOREPINEPHRINE 8 MG/250ML KIT 250 ML IV SCH (07:30)
[2021-11-17] MEDS ORDERED: SODIUM CHLORIDE 0.9% 250 ML IV ONE ×2 (07:40→08:30)
[2021-11-17] MEDS: Glucerna Carbsteady SHAKE Vanilla 8oz PO SCH ×3 (08:26→18:30)
[2021-11-17] MEDS ORDERED: MIDODRINE HCL 10 MG TAB PO ONE (08:30)
[2021-11-17] MEDS: SODIUM CHLORIDE 0.9% 1,000 ML IV SCH ×2 (08:34→09:59)
[2021-11-17] MEDS: ERTAPENEM SOD INJ 1 GM in SODIUM CHL 0.9% 50 ML IV SCH (09:51)
[2021-11-17] MEDS: HYDROCORTISONE SOD SUCC 100 MG/2ML INJ VIAL IV SCH (09:51)
[2021-11-17] MEDS: DABIGATRAN 75 MG CAP PO SCH ×2 (10:00→21:46)
[2021-11-17] MEDS: THIAMINE HCL 100 MG TAB PO SCH (10:00)
[2021-11-17] MEDS: TOPIRAMATE 100 MG TAB PO SCH ×2 (10:00→21:47)
[2021-11-17] MEDS: FOLIC ACID 1 MG TAB PO SCH (10:00)
[2021-11-17] MEDS: CYANOCOBALAMIN 500 MCG TAB PO SCH (10:00)
[2021-11-17] MEDS: PANTOPRAZOLE 40 MG TAB PO SCH ×2 (10:00→21:47)
[2021-11-17] MEDS: traMADol HCL 50 MG TAB PO PRN ×2 (11:39→22:49)
[2021-11-17] MEDS: SODIUM FERR GLUC 62.5MG/5ML 125 MG in SODIUM CHL 0.9% 100 ML IV SCH (13:09)
[2021-11-17] MEDS: HYDROCORTISONE 10 MG TAB PO SCH (21:48)
[2021-11-18] VITALS (71 sets, daily range): BP systolic 66–122; BP diastolic 34–76
[2021-11-18] MEDS: SODIUM CHLORIDE 0.9% 1,000 ML IV SCH (01:30)
[2021-11-18] MEDS: MORPHINE SULFATE INJ 2 MG/ml SYRG IV PRN ×5 (01:30→22:10)
[2021-11-18] MEDS: NOREPINEPHRINE 8 MG/250ML KIT 250 ML IV SCH (02:30)
[2021-11-18 04:33] LABS: Basophils # (auto) 0 10 ^3/uL (0-0.2); Basophils % (auto) 0.4 % (0.0-2.0); Eosinophils # (auto) 0.1 10 ^3/uL (0-0.8); Mean Corpuscular Volume 95.4 fL (80.0-100.0); Monocytes # (auto) 0.6 10 ^3/uL (0-1.3); Nucleated Red Blood Cells % 0.2 %; Red Cell Distribution Width 28.8 % (11.8-14.3)
[2021-11-18 04:35] LABS: Eosinophils % (auto) 1.1 % (0.0-7.0); Hematocrit 26.5 % (36.0-46.0); Lymphocytes # (auto) 1.4 10 ^3/uL (0.4-5.4); Mean Corpuscular Hemoglobin 28.9 pg (28.0-32.0); Mean Corpuscular Hgb Conc. 30.3 g/dL (32.0-36.0); Monocytes % (auto) 8.4 % (0.0-12.0); Neutrophils # (auto) 5.4 10 ^3/uL (1.6-8.6); Neutrophils % (auto) 72.1 % (37.0-80.0); Red Blood Cells 2.78 10^6/uL (4.0-5.20); White Blood Cell 7.5 10^3/uL (4.4-10.8)
[2021-11-18 04:47] LABS: Calcium 7.7 mg/dL (8.5-10.1); Potassium 3.7 mmol/L (3.5-5.1)
[2021-11-18] MEDS: SUCRALFATE 1 GM/10 ML ORAL SUSP PO SCH ×3 (06:09→18:17)
[2021-11-18] MEDS: levETIRAcetam 500 MG TAB PO SCH ×2 (06:09→22:09)
[2021-11-18] MEDS: GABAPENTIN 300 MG CAP PO SCH ×3 (06:09→22:09)
[2021-11-18] MEDS: MIDODRINE HCL 10 MG TAB PO SCH ×3 (06:09→18:17)
[2021-11-18] MEDS: cefTRIAXone 1GM/50ML D5W 50 ML IV SCH (09:18)
[2021-11-18] MEDS: FOLIC ACID 1 MG TAB PO SCH (09:18)
[2021-11-18] MEDS: PANTOPRAZOLE 40 MG TAB PO SCH ×2 (09:18→22:09)
[2021-11-18] MEDS: THIAMINE HCL 100 MG TAB PO SCH (09:19)
[2021-11-18] MEDS: CYANOCOBALAMIN 500 MCG TAB PO SCH (09:20)
[2021-11-18] MEDS: TOPIRAMATE 100 MG TAB PO SCH ×2 (09:20→22:09)
[2021-11-18] MEDS: DABIGATRAN 75 MG CAP PO SCH ×2 (09:20→22:08)
[2021-11-18] MEDS: HYDROCORTISONE 10 MG TAB PO SCH ×2 (09:22→22:08)
[2021-11-18] MEDS: Glucerna Carbsteady SHAKE Vanilla 8oz PO SCH ×3 (09:30→18:12)
[2021-11-18] MEDS: traMADol HCL 50 MG TAB PO PRN (10:43)
[2021-11-18] MEDS: SODIUM FERR GLUC 62.5MG/5ML 125 MG in SODIUM CHL 0.9% 100 ML IV SCH (13:05)
[2021-11-19] MEDS: MORPHINE SULFATE INJ 2 MG/ml SYRG IV PRN ×2 (02:27→07:21)
[2021-11-19 05:00] VITALS: BP 91/59
[2021-11-19] MEDS: GABAPENTIN 300 MG CAP PO SCH ×2 (06:14→14:06)
[2021-11-19] MEDS: MIDODRINE HCL 10 MG TAB PO SCH ×2 (06:14→14:06)
[2021-11-19] MEDS: SUCRALFATE 1 GM/10 ML ORAL SUSP PO SCH ×2 (06:43→11:21)
[2021-11-19] MEDS: levETIRAcetam 500 MG TAB PO SCH (06:43)
[2021-11-19] MEDS: Glucerna Carbsteady SHAKE Vanilla 8oz PO SCH ×2 (08:29→12:35)
[2021-11-19 09:00] VITALS: BP 100/64
[2021-11-19] MEDS: cefTRIAXone 1GM/50ML D5W 50 ML IV SCH (09:18)
[2021-11-19] MEDS ORDERED: hydrOXYchloroQUINE SULFATE 200 MG TAB PO SCH (10:00)
[2021-11-19] MEDS: HYDROCORTISONE 10 MG TAB PO SCH (10:03)
[2021-11-19] MEDS: THIAMINE HCL 100 MG TAB PO SCH (10:03)
[2021-11-19] MEDS: FOLIC ACID 1 MG TAB PO SCH (10:03)
[2021-11-19] MEDS: TOPIRAMATE 100 MG TAB PO SCH (10:04)
[2021-11-19] MEDS: DABIGATRAN 75 MG CAP PO SCH (10:04)
[2021-11-19] MEDS: PANTOPRAZOLE 40 MG TAB PO SCH (10:04)
[2021-11-19] MEDS: CYANOCOBALAMIN 500 MCG TAB PO SCH (10:04)
[2021-11-19] MEDS ORDERED: HYDR20TA20 PO (12:17)
[2021-11-19] MEDS ORDERED: MID10T PO (12:17)
[2021-11-19] MEDS ORDERED: FERR-7 PO (12:17)
[2021-11-19] MEDS ORDERED: SUCR1TAB22 PO (12:17)
[2021-11-19] MEDS ORDERED: CYAN500T3 PO (12:17)
[2021-11-19] MEDS ORDERED: FOLI1TAB6 PO (12:17)
[2021-11-19] MEDS ORDERED: HYDR-4623 PO (12:17)
[2021-11-19] MEDS ORDERED: HYDR200T36 PO (12:17)
[2021-11-19] MEDS ORDERED: PANT40TA2 PO (12:24)
[2021-11-19 13:00] VITALS: BP 107/61
[2021-11-19 13:39] VITALS: BP 104/58
== END 2021-11-19 14:59 | disposition home or self-care (01) | DRG 871 ==
LOC: ER 20:34 → TELE 11-07 00:28 → ICU WEST 11-07 06:32 → TELE-WESTW 11-18 21:30
PROVIDERS: ADMIT Hospitalist; ATTEND Internal Medicine
PROC: 4A10X4Z Monitoring of Central Nervous Electrical Activity, External Approach (ICD-10-PCS; principal; 2021-11-06)
PROC: 0DB68ZX Excision of Stomach, Via Natural or Artificial Opening Endoscopic, Diagnostic (ICD-10-PCS; 2021-11-12)
DX: A41.9 Sepsis, unspecified organism (principal); I50.31 Acute diastolic (congestive) heart failure; R65.21 Severe sepsis with septic shock; K29.71 Gastritis, unspecified, with bleeding; N39.0 Urinary tract infection, site not specified; J98.11 Atelectasis; E27.40 Unspecified adrenocortical insufficiency; E87.2 Acidosis; G40.401 Other generalized epilepsy and epileptic syndromes, not intractable, with status epilepticus; I11.0 Hypertensive heart disease with heart failure; J44.9 Chronic obstructive pulmonary disease, unspecified; F32.A Depression, unspecified; F41.9 Anxiety disorder, unspecified; K76.0 Fatty (change of) liver, not elsewhere classified; D71 Functional disorders of polymorphonuclear neutrophils; K44.9 Diaphragmatic hernia without obstruction or gangrene; E53.8 Deficiency of other specified B group vitamins; F10.20 Alcohol dependence, uncomplicated; Y90.9 Presence of alcohol in blood, level not specified; Z20.822 Contact with and (suspected) exposure to COVID-19; G62.9 Polyneuropathy, unspecified; M32.9 Systemic lupus erythematosus, unspecified; G89.29 Other chronic pain; M79.7 Fibromyalgia; Z86.711 Personal history of pulmonary embolism; Z79.01 Long term (current) use of anticoagulants; Z86.718 Personal history of other venous thrombosis and embolism; Z88.1 Allergy status to other antibiotic agents; Z88.5 Allergy status to narcotic agent; Z88.2 Allergy status to sulfonamides; Z88.8 Allergy status to other drugs, medicaments and biological substances; Z79.899 Other long term (current) drug therapy; Z85.41 Personal history of malignant neoplasm of cervix uteri; Z90.710 Acquired absence of both cervix and uterus; Z98.84 Bariatric surgery status; Z90.49 Acquired absence of other specified parts of digestive tract
CPT/HCPCS: 36415; 43239; 71045; 71275; 80048; 80053; 80061; 80307; 81001; 82533; 82607; 82746; 83036; 83516; 83540; 83550; 83735; 84207; 84425; 84443; 84484; 85007; 85025; 85027; 85610; 85652; 85730; 86141; 86160; 86225; 86235; 87081; 87086; 93005; 93306; 93926; 93970; 95819; 96361; 96365; 96375; 97110; 97116; 97163; 97530; C1751; G0378; J0696; J1335; J1956; J2001; J2250; J2405; J2704; J7060

== ENCOUNTER 2021-11-22 13:54 | Emergency (ER) | payer OTHER, MEDICAID ==
[~2021-11-22] VITALS: Ht 180.3 cm; Wt 72.8 kg
[~2021-11-22 13:54] MED LIST changes: +CYAN500T3 PO; +FERR-7 PO; +FOLI1TAB6 PO; +HYDR-4623 PO; +HYDR200T36 PO; +HYDR20TA20 PO; -KEP500T PO; +LEVE500T32 PO; +MID10T PO; +ONDA-144 PO; +PANT40TA2 PO; +SUCR1TAB22 PO; +SUMA50TA2 PO; -TOPI50TA32 PO; +TOPI50TA53 PO
[2021-11-22 14:50] VITALS: BP 100/45
[2021-11-22 16:10] LABS: Basophils # (auto) 0 10 ^3/uL (0-0.2); Eosinophils # (auto) 0.1 10 ^3/uL (0-0.8); Hemoglobin 9.9 g/dL (12.2-16.2); Monocytes # (auto) 0.4 10 ^3/uL (0-1.3); White Blood Cell 6.1 10^3/uL (4.4-10.8)
[2021-11-22 16:12] LABS: Basophils % (auto) 0.6 % (0.0-2.0); Hematocrit 32.5 % (36.0-46.0); Lymphocytes # (auto) 1.1 10 ^3/uL (0.4-5.4); Lymphocytes % (auto) 17.4 % (10.0-50.0); Mean Corpuscular Hemoglobin 29.1 pg (28.0-32.0); Mean Corpuscular Hgb Conc. 30.5 g/dL (32.0-36.0); Mean Corpuscular Volume 95.5 fL (80.0-100.0); Neutrophils # (auto) 4.5 10 ^3/uL (1.6-8.6); Nucleated Red Blood Cells % 0.1 %
[2021-11-22 16:17] LABS: Red Cell Distribution Width 27.6 % (11.8-14.3)
[2021-11-22 16:23] LABS: INR 0.96 (0.9-1.15); Partial Thromboplastin Time 25.1 sec (24.6-33.4)
[2021-11-22 16:25] LABS: Albumin 3.2 g/dL (3.4-5.0); Calcium 8.2 mg/dL (8.5-10.1); Potassium 3.7 mmol/L (3.5-5.1)
[2021-11-22 16:28] LABS: Bilirubin, Total 0.5 mg/dL (0.2-1.0); Total Protein 7.1 g/dL (6.4-8.2)
== END 2021-11-22 16:32 | disposition left against medical advice (07) ==
LOC: ER 13:54
DX: M79.661 Pain in right lower leg (principal); M79.662 Pain in left lower leg; Z53.21 Procedure and treatment not carried out due to patient leaving prior to being seen by health care provider; X58.XXXA Exposure to other specified factors, initial encounter; Y93.89 Activity, other specified; Y92.89 Other specified places as the place of occurrence of the external cause; Y99.8 Other external cause status
CPT/HCPCS: 36415; 80053; 85025; 85610; 85730; 93005

== ENCOUNTER 2022-01-08 11:55 | Inpatient (IN) | payer OTHER, MEDICAID ==
[~2022-01-08] VITALS: Ht 180.3 cm; Wt 90.8 kg
[2022-01-08 13:48] LABS: Basophils # (auto) 0 10 ^3/uL (0-0.2); Basophils % (auto) 0.8 % (0.0-2.0); Eosinophils # (auto) 0.2 10 ^3/uL (0-0.8); Eosinophils % (auto) 3.8 % (0.0-7.0); Hematocrit 39.4 % (36.0-46.0); Hemoglobin 12.1 g/dL (12.2-16.2); Lymphocytes # (auto) 1.1 10 ^3/uL (0.4-5.4); Lymphocytes % (auto) 20.9 % (10.0-50.0); Mean Corpuscular Hemoglobin 29.3 pg (28.0-32.0); Mean Corpuscular Hgb Conc. 30.8 g/dL (32.0-36.0); Mean Corpuscular Volume 95.2 fL (80.0-100.0); Monocytes # (auto) 0.3 10 ^3/uL (0-1.3); Monocytes % (auto) 6.4 % (0.0-12.0); Neutrophils # (auto) 3.4 10 ^3/uL (1.6-8.6); Neutrophils % (auto) 68.1 % (37.0-80.0); Nucleated Red Blood Cells % 0.1 %; Red Blood Cells 4.14 10^6/uL (4.0-5.20); Red Cell Distribution Width 20.1 % (11.8-14.3)
[2022-01-08] MEDS ORDERED: SODIUM CHLORIDE 0.9% 1,000 ML IV ONE (14:00)
[2022-01-08 14:05] LABS: Albumin 2.9 g/dL (3.4-5.0); Calcium 8.3 mg/dL (8.5-10.1); Potassium 4.9 mmol/L (3.5-5.1)
[2022-01-08 14:10] LABS: BUN/Creatinine Ratio 13.1; Bilirubin, Total 0.3 mg/dL (0.2-1.0); Total Protein 6.3 g/dL (6.4-8.2)
[2022-01-08 17:18] LABS: INR 0.9 (0.9-1.15); Partial Thromboplastin Time 23.4 sec (24.6-33.4)
[2022-01-08] MEDS ORDERED: ONDANSETRON HCL 4 MG/2 ML VIAL IV ONE (17:45)
[2022-01-08] MEDS ORDERED: MORPHINE SULFATE 4 MG/ML SYR/VIAL IV ONE (17:45)
[2022-01-08] MEDS ORDERED: HEPARIN DRIP/D5W 100UNITS/ML 250 ML IV SCH (18:00)
[2022-01-08] MEDS ORDERED: HEPARIN SODIUM (PORCINE) 5000 UNITS/ML 1ML VIAL IV ONE (18:00)
[2022-01-08 18:11] LABS: Basophils # (auto) 0 10 ^3/uL (0-0.2); Basophils % (auto) 0.2 % (0.0-2.0); Eosinophils # (auto) 0.1 10 ^3/uL (0-0.8); Eosinophils % (auto) 2.7 % (0.0-7.0); Hematocrit 36.5 % (36.0-46.0); Hemoglobin 11.5 g/dL (12.2-16.2); Lymphocytes # (auto) 0.9 10 ^3/uL (0.4-5.4); Lymphocytes % (auto) 17.6 % (10.0-50.0); Mean Corpuscular Hemoglobin 29.6 pg (28.0-32.0); Mean Corpuscular Hgb Conc. 31.5 g/dL (32.0-36.0); Monocytes # (auto) 0.5 10 ^3/uL (0-1.3); Monocytes % (auto) 10.7 % (0.0-12.0); Neutrophils # (auto) 3.4 10 ^3/uL (1.6-8.6); Neutrophils % (auto) 68.8 % (37.0-80.0); Nucleated Red Blood Cells % 0.1 %; Red Blood Cells 3.88 10^6/uL (4.0-5.20); White Blood Cell 4.9 10^3/uL (4.4-10.8)
[2022-01-08 18:24] LABS: Red Cell Distribution Width 20.2 % (11.8-14.3)
[2022-01-08 18:47] LABS: INR 0.93 (0.9-1.15)
[2022-01-08] MEDS ORDERED: IOHEXOL 350 MG/ML 100ML IJ ONE (18:57)
[2022-01-08] MEDS ORDERED: DOCUSATE SOD 100 MG CAP PO PRN (19:00)
[2022-01-08] MEDS: HYDROmorphone HCL 2 MG/ML VL/or syr IV PRN (20:23)
[2022-01-09] VITALS (16 sets, daily range): BP systolic 105–127; BP diastolic 61–82
[2022-01-09] MEDS: HYDROmorphone HCL 2 MG/ML VL/or syr IV PRN ×7 (00:29→20:05)
[2022-01-09 04:24] LABS: Urine Bacteria FEW /hpf (None Seen); Urine Blood 1+ /uL (Negative); Urine Mucus FEW (None Seen); Urine Specific Gravity 1.023 (1.001-1.035); Urine WBC 682 /hpf (0 - 5)
[2022-01-09 05:34] LABS: Basophils # (auto) 0 10 ^3/uL (0-0.2); Basophils % (auto) 0.5 % (0.0-2.0); Eosinophils # (auto) 0.1 10 ^3/uL (0-0.8); Hematocrit 35.5 % (36.0-46.0); Hemoglobin 11.1 g/dL (12.2-16.2); Lymphocytes # (auto) 0.6 10 ^3/uL (0.4-5.4); Lymphocytes % (auto) 16.8 % (10.0-50.0); Mean Corpuscular Hemoglobin 30.1 pg (28.0-32.0); Mean Corpuscular Hgb Conc. 31.2 g/dL (32.0-36.0); Mean Corpuscular Volume 96.3 fL (80.0-100.0); Monocytes # (auto) 0.4 10 ^3/uL (0-1.3); Monocytes % (auto) 10.7 % (0.0-12.0); Neutrophils # (auto) 2.6 10 ^3/uL (1.6-8.6); Nucleated Red Blood Cells % 0.2 %; Red Blood Cells 3.68 10^6/uL (4.0-5.20); White Blood Cell 3.8 10^3/uL (4.4-10.8)
[2022-01-09 05:36] LABS: Red Cell Distribution Width 20.4 % (11.8-14.3)
[2022-01-09 05:48] LABS: Albumin 2.7 g/dL (3.4-5.0); Calcium 8.2 mg/dL (8.5-10.1); Potassium 3.8 mmol/L (3.5-5.1)
[2022-01-09 05:53] LABS: BUN/Creatinine Ratio 11.4; Bilirubin, Total 0.6 mg/dL (0.2-1.0); Total Protein 6.1 g/dL (6.4-8.2)
[2022-01-09] MEDS: ONDANSETRON HCL 4 MG/2 ML VIAL IV PRN (07:50)
[2022-01-09] MEDS ORDERED: traMADol HCL 50 MG TAB PO ONE (08:30)
[2022-01-09] MEDS ORDERED: traMADol HCL 50 MG TAB PO PRN (12:15)
[2022-01-09] MEDS: CLINDAMYCIN 300MG IV 50 ML IV SCH ×2 (13:50→22:35)
[2022-01-09] MEDS: OXYCODONE W/ ACETAMINOPHEN 5/325MG TABLET PO PRN ×2 (14:35→22:18)
[2022-01-09] MEDS: FERROUS SULFATE 325mg EC TAB PO SCH (18:00)
[2022-01-09] MEDS ORDERED: IOHEXOL 350 MG/ML 100ML IJ ONE (20:31)
[2022-01-09] MEDS: levETIRAcetam 500 MG TAB PO SCH (22:34)
[2022-01-09] MEDS: GABAPENTIN 300 MG CAP PO SCH (22:34)
[2022-01-09] MEDS: TOPIRAMATE 25 MG TAB PO SCH (22:47)
[2022-01-09] MEDS: BACLOFEN 10 MG TAB PO PRN (22:51)
[2022-01-10] VITALS (15 sets, daily range): BP systolic 83–119; BP diastolic 48–70
[2022-01-10] MEDS: HYDROmorphone HCL 2 MG/ML VL/or syr IV PRN ×6 (00:16→23:27)
[2022-01-10] MEDS: OXYCODONE W/ ACETAMINOPHEN 5/325MG TABLET PO PRN ×2 (04:56→20:34)
[2022-01-10] MEDS: CLINDAMYCIN 300MG IV 50 ML IV SCH ×3 (06:23→22:25)
[2022-01-10] MEDS: GABAPENTIN 300 MG CAP PO SCH ×3 (06:23→22:25)
[2022-01-10] MEDS: FERROUS SULFATE 325mg EC TAB PO SCH ×2 (08:00→18:49)
[2022-01-10] MEDS: DULOXETINE 20 MG CAPSULE PO SCH (10:00)
[2022-01-10] MEDS: cefTRIAXone 1GM/50ML D5W 50 ML IV SCH (11:07)
[2022-01-10] MEDS: D5W/SOD CHL 0.45%/KCL 20MEQ 1,000 ML IV SCH ×2 (11:07→20:30)
[2022-01-10] MEDS: levETIRAcetam 500 MG TAB PO SCH ×2 (11:08→22:25)
[2022-01-10] MEDS: TOPIRAMATE 25 MG TAB PO SCH ×2 (11:08→22:25)
[2022-01-10] MEDS ORDERED: MIDAZOLAM HCL 2MG/2ML 2ml VIAL (1mg/ml) ONE ×3 (13:43→15:04)
[2022-01-10] MEDS ORDERED: fentaNYL CITRATE 100 MCG/2 ML VL ONE ×2 (13:43→14:31)
[2022-01-10] MEDS ORDERED: LIDOCAINE 2%HCL (LOCAL ANESTH.) INJ 10ml MDV ONE (13:50)
[2022-01-10] MEDS ORDERED: IODIXANOL 320MG/ML 100ML BTL IV ONE ×2 (13:50→14:26)
[2022-01-10] MEDS ORDERED: LIDOCAINE 2%HCL (LOCAL ANESTH.) INJ 20ML MDV ONE (13:50)
[2022-01-10] MEDS ORDERED: HYDROmorphone HCL 2 MG/ML VL/or syr ONE (14:05)
[2022-01-10] MEDS ORDERED: ANGIOMAX 250 MG VIAL IV ONE ×2 (14:12→14:40)
[2022-01-10] MEDS ORDERED: SODIUM CHL 0.9% 50 ML ONE ×2 (14:13→14:41)
[2022-01-10] MEDS ORDERED: HEPARIN SODIUM (PORCINE) 5000 UNITS/ML 1ML VIAL IV ONE (16:45)
[2022-01-10] MEDS ORDERED: HEPARIN DRIP/D5W 100UNITS/ML 250 ML IV SCH ×3 (16:45→20:00)
[2022-01-10 17:49] LABS: Basophils # (auto) 0.1 10 ^3/uL (0-0.2); Basophils % (auto) 2.4 % (0.0-2.0); Eosinophils # (auto) 0.2 10 ^3/uL (0-0.8); Eosinophils % (auto) 5.4 % (0.0-7.0); Hematocrit 34.4 % (36.0-46.0); Hemoglobin 10.7 g/dL (12.2-16.2); Lymphocytes # (auto) 0.7 10 ^3/uL (0.4-5.4); Lymphocytes % (auto) 15.5 % (10.0-50.0); Mean Corpuscular Hemoglobin 29.4 pg (28.0-32.0); Mean Corpuscular Hgb Conc. 31.2 g/dL (32.0-36.0); Mean Corpuscular Volume 94.4 fL (80.0-100.0); Monocytes # (auto) 0.4 10 ^3/uL (0-1.3); Monocytes % (auto) 8.1 % (0.0-12.0); Neutrophils % (auto) 68.6 % (37.0-80.0); Red Blood Cells 3.64 10^6/uL (4.0-5.20); Red Cell Distribution Width 19.8 % (11.8-14.3); White Blood Cell 4.4 10^3/uL (4.4-10.8)
[2022-01-10 18:18] LABS: INR 2.26 (0.9-1.15)
[2022-01-10 18:58] LABS: Partial Thromboplastin Time > 139.0 sec (24.6-33.4)
[2022-01-10] MEDS: HYDROCORTISONE 10 MG TAB PO SCH (19:35)
[2022-01-10 21:10] LABS: INR 1.08 (0.9-1.15); Partial Thromboplastin Time 43.1 sec (24.6-33.4)
[2022-01-10] MEDS: hydrOXYchloroQUINE SULFATE 200 MG TAB PO SCH (22:00)
[2022-01-10] MEDS: diphenhdrAMINE HCL 25 MG CAP PO PRN (22:41)
[2022-01-10] MEDS: ONDANSETRON HCL 4 MG/2 ML VIAL IV PRN (23:29)
[2022-01-11] VITALS (18 sets, daily range): BP systolic 84–104; BP diastolic 48–67
[2022-01-11] MEDS ORDERED: HEPARIN DRIP/D5W 100UNITS/ML 250 ML IV SCH ×2 (03:45→10:30)
[2022-01-11] MEDS: D5W/SOD CHL 0.45%/KCL 20MEQ 1,000 ML IV SCH ×3 (04:30→22:14)
[2022-01-11] MEDS: CLINDAMYCIN 300MG IV 50 ML IV SCH ×3 (06:37→21:53)
[2022-01-11] MEDS: GABAPENTIN 300 MG CAP PO SCH ×3 (06:37→21:54)
[2022-01-11] MEDS: HYDROmorphone HCL 2 MG/ML VL/or syr IV PRN ×3 (06:51→20:06)
[2022-01-11] MEDS: FERROUS SULFATE 325mg EC TAB PO SCH ×2 (08:38→18:07)
[2022-01-11] MEDS: HYDROCORTISONE 10 MG TAB PO SCH ×2 (08:38→18:07)
[2022-01-11 09:05] LABS: Basophils # (auto) 0 10 ^3/uL (0-0.2); Eosinophils # (auto) 0.2 10 ^3/uL (0-0.8); Hemoglobin 10.2 g/dL (12.2-16.2); Monocytes # (auto) 0.4 10 ^3/uL (0-1.3); Neutrophils # (auto) 2.9 10 ^3/uL (1.6-8.6); White Blood Cell 4.5 10^3/uL (4.4-10.8)
[2022-01-11 09:07] LABS: Basophils % (auto) 0.5 % (0.0-2.0); Eosinophils % (auto) 5.2 % (0.0-7.0); Hematocrit 32.8 % (36.0-46.0); Lymphocytes # (auto) 0.9 10 ^3/uL (0.4-5.4); Lymphocytes % (auto) 20.8 % (10.0-50.0); Mean Corpuscular Hemoglobin 29.7 pg (28.0-32.0); Mean Corpuscular Hgb Conc. 31.1 g/dL (32.0-36.0); Mean Corpuscular Volume 95.4 fL (80.0-100.0); Monocytes % (auto) 8.5 % (0.0-12.0); Nucleated Red Blood Cells % 0.1 %; Red Blood Cells 3.44 10^6/uL (4.0-5.20); Red Cell Distribution Width 19.5 % (11.8-14.3)
[2022-01-11] MEDS: levETIRAcetam 500 MG TAB PO SCH ×2 (09:07→21:54)
[2022-01-11] MEDS: TOPIRAMATE 25 MG TAB PO SCH ×2 (09:07→21:54)
[2022-01-11] MEDS: DULOXETINE 20 MG CAPSULE PO SCH (09:07)
[2022-01-11] MEDS: cefTRIAXone 1GM/50ML D5W 50 ML IV SCH (09:07)
[2022-01-11] MEDS: OXYCODONE W/ ACETAMINOPHEN 5/325MG TABLET PO PRN ×2 (09:12→18:08)
[2022-01-11] MEDS: hydrOXYchloroQUINE SULFATE 200 MG TAB PO SCH ×2 (09:13→21:58)
[2022-01-11 09:27] LABS: INR 0.96 (0.9-1.15); Partial Thromboplastin Time 61.7 sec (24.6-33.4)
[2022-01-11 09:32] LABS: BUN/Creatinine Ratio 9.8; Calcium 7.8 mg/dL (8.5-10.1); Magnesium 2.3 mg/dL (1.6-2.6); Potassium 4.3 mmol/L (3.5-5.1)
[2022-01-11] MEDS: diphenhdrAMINE HCL 25 MG CAP PO PRN (10:19)
[2022-01-11] MEDS ORDERED: PANTOPRAZOLE 40 MG TAB PO ONE (10:45)
[2022-01-11] MEDS: HEPARIN DRIP/D5W 100UNITS/ML 250 ML IV SCH (14:00)
[2022-01-11 15:03] LABS: INR 0.97 (0.9-1.15)
[2022-01-11] MEDS: MIDODRINE HCL 10 MG TAB PO SCH (18:08)
[2022-01-11 18:14] LABS: Free T4 (Free Thyroxine) 1.12 ng/dL (0.89-1.76)
[2022-01-11] MEDS: PANTOPRAZOLE 40 MG TAB PO SCH (21:54)
[2022-01-11 22:10] LABS: Folate (Folic Acid) 16.87 ng/mL (5.38-24)
[2022-01-12] VITALS (22 sets, daily range): BP systolic 83–98; BP diastolic 43–59
[2022-01-12] MEDS: HYDROmorphone HCL 2 MG/ML VL/or syr IV PRN ×5 (02:10→20:43)
[2022-01-12 03:06] LABS: Eosinophils # (auto) 0.2 10 ^3/uL (0-0.8); Hemoglobin 10.3 g/dL (12.2-16.2); Monocytes # (auto) 0.5 10 ^3/uL (0-1.3)
[2022-01-12 03:08] LABS: Basophils # (auto) 0 10 ^3/uL (0-0.2); Basophils % (auto) 0.8 % (0.0-2.0); Eosinophils % (auto) 3.9 % (0.0-7.0); Lymphocytes # (auto) 1.2 10 ^3/uL (0.4-5.4); Lymphocytes % (auto) 24.1 % (10.0-50.0); Mean Corpuscular Hgb Conc. 31.2 g/dL (32.0-36.0); Mean Corpuscular Volume 96.3 fL (80.0-100.0); Monocytes % (auto) 10.2 % (0.0-12.0); Neutrophils # (auto) 3.1 10 ^3/uL (1.6-8.6); Red Blood Cells 3.43 10^6/uL (4.0-5.20); Red Cell Distribution Width 19.9 % (11.8-14.3); White Blood Cell 5.1 10^3/uL (4.4-10.8)
[2022-01-12 03:16] LABS: INR 0.95 (0.9-1.15); Partial Thromboplastin Time 54.4 sec (24.6-33.4)
[2022-01-12 03:22] LABS: Albumin 2.3 g/dL (3.4-5.0); BUN/Creatinine Ratio 12.9; Calcium 7.6 mg/dL (8.5-10.1); Magnesium 2.5 mg/dL (1.6-2.6); Phosphorus 3.8 mg/dL (2.5-4.90); Potassium 4.7 mmol/L (3.5-5.1)
[2022-01-12 03:25] LABS: Bilirubin, Total 0.2 mg/dL (0.2-1.0); Total Protein 5.2 g/dL (6.4-8.2)
[2022-01-12] MEDS: MIDODRINE HCL 10 MG TAB PO SCH ×3 (05:48→18:46)
[2022-01-12] MEDS: CLINDAMYCIN 300MG IV 50 ML IV SCH ×3 (05:48→22:45)
[2022-01-12] MEDS: HYDROCORTISONE 10 MG TAB PO SCH ×2 (05:49→18:46)
[2022-01-12] MEDS: GABAPENTIN 300 MG CAP PO SCH ×3 (05:49→22:46)
[2022-01-12] MEDS: DULOXETINE 20 MG CAPSULE PO SCH (07:39)
[2022-01-12] MEDS: cefTRIAXone 1GM/50ML D5W 50 ML IV SCH (07:39)
[2022-01-12] MEDS: FERROUS SULFATE 325mg EC TAB PO SCH ×2 (07:39→18:46)
[2022-01-12] MEDS: levETIRAcetam 500 MG TAB PO SCH ×2 (07:40→22:00)
[2022-01-12] MEDS: PANTOPRAZOLE 40 MG TAB PO SCH ×2 (07:40→22:46)
[2022-01-12] MEDS: TOPIRAMATE 25 MG TAB PO SCH ×2 (07:40→22:46)
[2022-01-12 09:53] LABS: INR 0.95 (0.9-1.15); Partial Thromboplastin Time 57.6 sec (24.6-33.4)
[2022-01-12] MEDS: hydrOXYchloroQUINE SULFATE 200 MG TAB PO SCH ×2 (09:59→22:00)
[2022-01-12] MEDS ORDERED: FUROSEMIDE 40 MG/4 ML VIAL IV ONE (10:00)
[2022-01-12] MEDS: D5W/SOD CHL 0.45%/KCL 20MEQ 1,000 ML IV SCH ×2 (13:05→19:04)
[2022-01-12] MEDS: FUROSEMIDE 20 MG/2 ML VIAL IV SCH (13:05)
[2022-01-12] MEDS: OXYCODONE W/ ACETAMINOPHEN 5/325MG TABLET PO PRN (13:27)
[2022-01-12] MEDS ORDERED: WARFARIN SODIUM 5 MG TAB PO ONE (17:00)
[2022-01-12] MEDS: BACLOFEN 10 MG TAB PO PRN (22:53)
[2022-01-13] VITALS (11 sets, daily range): BP systolic 89–109; BP diastolic 45–64
[2022-01-13] MEDS: HYDROmorphone HCL 2 MG/ML VL/or syr IV PRN ×5 (00:31→22:02)
[2022-01-13] MEDS: OXYCODONE W/ ACETAMINOPHEN 5/325MG TABLET PO PRN ×3 (02:58→19:41)
[2022-01-13] MEDS: diphenhdrAMINE HCL 25 MG CAP PO PRN (04:01)
[2022-01-13] MEDS: D5W/SOD CHL 0.45%/KCL 20MEQ 1,000 ML IV SCH (05:31)
[2022-01-13] MEDS: CLINDAMYCIN 300MG IV 50 ML IV SCH ×3 (05:45→21:41)
[2022-01-13] MEDS: MIDODRINE HCL 10 MG TAB PO SCH ×3 (05:45→17:39)
[2022-01-13] MEDS: GABAPENTIN 300 MG CAP PO SCH ×3 (05:45→21:41)
[2022-01-13 06:27] LABS: Nucleated Red Blood Cells % 0.1 %; Red Cell Distribution Width 19.8 % (11.8-14.3)
[2022-01-13 06:31] LABS: Basophils # (auto) 0 10 ^3/uL (0-0.2); Basophils % (auto) 0.3 % (0.0-2.0); Eosinophils # (auto) 0.2 10 ^3/uL (0-0.8); Eosinophils % (auto) 4.5 % (0.0-7.0); Hematocrit 29.6 % (36.0-46.0); Hemoglobin 9.4 g/dL (12.2-16.2); Lymphocytes # (auto) 1.5 10 ^3/uL (0.4-5.4); Lymphocytes % (auto) 32.2 % (10.0-50.0); Mean Corpuscular Hemoglobin 30.2 pg (28.0-32.0); Mean Corpuscular Hgb Conc. 31.6 g/dL (32.0-36.0); Mean Corpuscular Volume 95.6 fL (80.0-100.0); Monocytes # (auto) 0.4 10 ^3/uL (0-1.3); Monocytes % (auto) 9.7 % (0.0-12.0); Neutrophils # (auto) 2.4 10 ^3/uL (1.6-8.6); Neutrophils % (auto) 53.3 % (37.0-80.0); White Blood Cell 4.5 10^3/uL (4.4-10.8)
[2022-01-13 06:39] LABS: INR 0.94 (0.9-1.15); Partial Thromboplastin Time 46.7 sec (24.6-33.4)
[2022-01-13] MEDS: HEPARIN DRIP/D5W 100UNITS/ML 250 ML IV SCH ×2 (07:10→08:52)
[2022-01-13 07:49] LABS: Potassium 4.3 mmol/L (3.5-5.1)
[2022-01-13 07:50] LABS: BUN/Creatinine Ratio 10.9; Calcium 7.7 mg/dL (8.5-10.1)
[2022-01-13] MEDS: FERROUS SULFATE 325mg EC TAB PO SCH ×2 (08:37→17:39)
[2022-01-13] MEDS: HYDROCORTISONE 10 MG TAB PO SCH ×2 (08:39→17:39)
[2022-01-13] MEDS: cefTRIAXone 1GM/50ML D5W 50 ML IV SCH (08:40)
[2022-01-13] MEDS: PANTOPRAZOLE 40 MG TAB PO SCH ×2 (09:55→21:41)
[2022-01-13] MEDS: FUROSEMIDE 20 MG/2 ML VIAL IV SCH (09:55)
[2022-01-13] MEDS: levETIRAcetam 500 MG TAB PO SCH ×2 (09:55→21:41)
[2022-01-13] MEDS: hydrOXYchloroQUINE SULFATE 200 MG TAB PO SCH ×2 (09:56→21:41)
[2022-01-13] MEDS: TOPIRAMATE 25 MG TAB PO SCH ×2 (09:57→21:40)
[2022-01-13] MEDS: DULOXETINE 20 MG CAPSULE PO SCH (10:00)
[2022-01-13] MEDS ORDERED: HEPARIN DRIP/D5W 100UNITS/ML 250 ML IV SCH (10:45)
[2022-01-13] MEDS ORDERED: WARFARIN SODIUM 2.5 MG TAB PO ONE (17:00)
[2022-01-13 17:36] LABS: INR 0.95 (0.9-1.15); Partial Thromboplastin Time 39.9 sec (24.6-33.4)
[2022-01-14] MEDS: HYDROmorphone HCL 2 MG/ML VL/or syr IV PRN ×5 (01:23→20:41)
[2022-01-14] MEDS: MIDODRINE HCL 10 MG TAB PO SCH ×3 (06:25→18:10)
[2022-01-14] MEDS: GABAPENTIN 300 MG CAP PO SCH ×3 (06:26→22:45)
[2022-01-14] MEDS: CLINDAMYCIN 300MG IV 50 ML IV SCH ×3 (06:26→22:44)
[2022-01-14] MEDS: HYDROCORTISONE 10 MG TAB PO SCH ×2 (06:26→18:10)
[2022-01-14 06:29] VITALS: BP 92/56
[2022-01-14 08:00] VITALS: BP 100/58
[2022-01-14] MEDS: cefTRIAXone 1GM/50ML D5W 50 ML IV SCH (08:05)
[2022-01-14] MEDS: FERROUS SULFATE 325mg EC TAB PO SCH ×2 (08:05→18:10)
[2022-01-14 08:15] LABS: Basophils # (auto) 0 10 ^3/uL (0-0.2); Basophils % (auto) 0.9 % (0.0-2.0); Eosinophils # (auto) 0.2 10 ^3/uL (0-0.8); Eosinophils % (auto) 3.7 % (0.0-7.0); Hematocrit 30.6 % (36.0-46.0); Hemoglobin 9.5 g/dL (12.2-16.2); Lymphocytes # (auto) 1.4 10 ^3/uL (0.4-5.4); Lymphocytes % (auto) 27.7 % (10.0-50.0); Mean Corpuscular Hemoglobin 29.7 pg (28.0-32.0); Mean Corpuscular Hgb Conc. 31.2 g/dL (32.0-36.0); Mean Corpuscular Volume 95.4 fL (80.0-100.0); Monocytes # (auto) 0.4 10 ^3/uL (0-1.3); Monocytes % (auto) 7.1 % (0.0-12.0); Neutrophils # (auto) 3.1 10 ^3/uL (1.6-8.6); Neutrophils % (auto) 60.6 % (37.0-80.0); Nucleated Red Blood Cells % 0.1 %; Red Blood Cells 3.21 10^6/uL (4.0-5.20); Red Cell Distribution Width 20.7 % (11.8-14.3); White Blood Cell 5.1 10^3/uL (4.4-10.8)
[2022-01-14 08:22] LABS: INR 1.01 (0.9-1.15); Partial Thromboplastin Time 22.8 sec (24.6-33.4)
[2022-01-14 08:35] LABS: Albumin 1.8 g/dL (3.4-5.0); Calcium 8.1 mg/dL (8.5-10.1); Potassium 4.7 mmol/L (3.5-5.1)
[2022-01-14 08:42] LABS: BUN/Creatinine Ratio 9.3; Bilirubin, Total 0.3 mg/dL (0.2-1.0)
[2022-01-14] MEDS: DULOXETINE 20 MG CAPSULE PO SCH (09:39)
[2022-01-14] MEDS: levETIRAcetam 500 MG TAB PO SCH ×2 (09:39→22:44)
[2022-01-14] MEDS: hydrOXYchloroQUINE SULFATE 200 MG TAB PO SCH ×2 (09:39→22:45)
[2022-01-14] MEDS: FUROSEMIDE 20 MG/2 ML VIAL IV SCH (09:39)
[2022-01-14] MEDS: TOPIRAMATE 25 MG TAB PO SCH ×2 (09:40→22:44)
[2022-01-14] MEDS: PANTOPRAZOLE 40 MG TAB PO SCH ×2 (09:40→22:45)
[2022-01-14] MEDS ORDERED: APIXABAN 5 MG TAB PO ONE (10:15)
[2022-01-14 12:09] VITALS: BP 97/55
[2022-01-14 17:00] VITALS: BP 96/56
[2022-01-14] MEDS ORDERED: WARFARIN SODIUM 10 MG TAB PO ONE (17:00)
[2022-01-14 22:00] VITALS: BP 108/69
[2022-01-14] MEDS: APIXABAN 5 MG TAB PO SCH (22:45)
[2022-01-15] MEDS: HYDROmorphone HCL 2 MG/ML VL/or syr IV PRN ×5 (00:30→23:28)
[2022-01-15 05:00] VITALS: BP 98/56
[2022-01-15] MEDS: CLINDAMYCIN 300MG IV 50 ML IV SCH ×3 (06:13→22:02)
[2022-01-15] MEDS: MIDODRINE HCL 10 MG TAB PO SCH ×3 (06:13→19:59)
[2022-01-15] MEDS: GABAPENTIN 300 MG CAP PO SCH ×3 (06:13→22:02)
[2022-01-15] MEDS: HYDROCORTISONE 10 MG TAB PO SCH ×2 (06:14→19:59)
[2022-01-15] MEDS: OXYCODONE W/ ACETAMINOPHEN 5/325MG TABLET PO PRN ×2 (06:14→13:05)
[2022-01-15 06:33] LABS: INR 1.07 (0.9-1.15)
[2022-01-15 06:43] LABS: Basophils # (auto) 0 10 ^3/uL (0-0.2); Basophils % (auto) 0.5 % (0.0-2.0); Eosinophils # (auto) 0.1 10 ^3/uL (0-0.8); Eosinophils % (auto) 3.2 % (0.0-7.0); Hematocrit 29.3 % (36.0-46.0); Hemoglobin 9.4 g/dL (12.2-16.2); Lymphocytes # (auto) 1.3 10 ^3/uL (0.4-5.4); Lymphocytes % (auto) 31.9 % (10.0-50.0); Mean Corpuscular Hemoglobin 30.3 pg (28.0-32.0); Mean Corpuscular Hgb Conc. 32.1 g/dL (32.0-36.0); Mean Corpuscular Volume 94.3 fL (80.0-100.0); Monocytes # (auto) 0.4 10 ^3/uL (0-1.3); Monocytes % (auto) 10.1 % (0.0-12.0); Neutrophils # (auto) 2.3 10 ^3/uL (1.6-8.6); Neutrophils % (auto) 54.3 % (37.0-80.0); Red Cell Distribution Width 20.4 % (11.8-14.3); White Blood Cell 4.2 10^3/uL (4.4-10.8)
[2022-01-15 07:13] LABS: BUN/Creatinine Ratio 16.1; Calcium 7.9 mg/dL (8.5-10.1); Potassium 4.4 mmol/L (3.5-5.1)
[2022-01-15] MEDS: FERROUS SULFATE 325mg EC TAB PO SCH ×2 (08:22→19:59)
[2022-01-15] MEDS: cefTRIAXone 1GM/50ML D5W 50 ML IV SCH (08:23)
[2022-01-15] MEDS: APIXABAN 5 MG TAB PO SCH ×2 (08:54→22:02)
[2022-01-15] MEDS: PANTOPRAZOLE 40 MG TAB PO SCH ×2 (08:55→22:03)
[2022-01-15] MEDS: hydrOXYchloroQUINE SULFATE 200 MG TAB PO SCH ×2 (08:55→22:03)
[2022-01-15] MEDS: levETIRAcetam 500 MG TAB PO SCH ×2 (08:55→22:03)
[2022-01-15 09:00] VITALS: BP 102/63
[2022-01-15] MEDS: DULOXETINE 20 MG CAPSULE PO SCH (10:00)
[2022-01-15] MEDS: TOPIRAMATE 25 MG TAB PO SCH ×2 (10:55→22:03)
[2022-01-15 13:00] VITALS: BP 94/44
[2022-01-15] MEDS: BACLOFEN 10 MG TAB PO PRN (13:06)
[2022-01-15 13:07] VITALS: BP 101/75
[2022-01-15] MEDS: FUROSEMIDE 20 MG/2 ML VIAL IV SCH (14:21)
[2022-01-15 16:50] VITALS: BP 92/50
[2022-01-15] MEDS: ONDANSETRON HCL 4 MG/2 ML VIAL IV PRN (19:51)
[2022-01-15 22:00] VITALS: BP 91/57
[2022-01-15] MEDS: DOCUSATE SOD 100 MG CAP PO SCH (22:00)
[2022-01-16] MEDS: HYDROmorphone HCL 2 MG/ML VL/or syr IV PRN ×4 (02:05→13:22)
[2022-01-16 05:00] VITALS: BP 96/59
[2022-01-16] MEDS: GABAPENTIN 300 MG CAP PO SCH ×2 (05:35→13:23)
[2022-01-16] MEDS: MIDODRINE HCL 10 MG TAB PO SCH ×2 (05:35→13:23)
[2022-01-16] MEDS: HYDROCORTISONE 10 MG TAB PO SCH (05:36)
[2022-01-16] MEDS: CLINDAMYCIN 300MG IV 50 ML IV SCH (05:37)
[2022-01-16 09:00] VITALS: BP 111/88
[2022-01-16] MEDS: FUROSEMIDE 20 MG/2 ML VIAL IV SCH (09:24)
[2022-01-16] MEDS: cefTRIAXone 1GM/50ML D5W 50 ML IV SCH (09:24)
[2022-01-16] MEDS: FERROUS SULFATE 325mg EC TAB PO SCH (09:25)
[2022-01-16] MEDS: levETIRAcetam 500 MG TAB PO SCH (09:25)
[2022-01-16] MEDS: PANTOPRAZOLE 40 MG TAB PO SCH (09:25)
[2022-01-16] MEDS: APIXABAN 5 MG TAB PO SCH (09:26)
[2022-01-16] MEDS: hydrOXYchloroQUINE SULFATE 200 MG TAB PO SCH (09:27)
[2022-01-16] MEDS: TOPIRAMATE 25 MG TAB PO SCH (09:27)
[2022-01-16] MEDS: DOCUSATE SOD 100 MG CAP PO SCH (09:30)
[2022-01-16] MEDS: DULOXETINE 20 MG CAPSULE PO SCH (09:32)
[2022-01-16 13:00] VITALS: BP 106/66
[2022-01-16] MEDS ORDERED: APIX5TAB PO (14:03)
[2022-01-16] MEDS ORDERED: LEVO500T31 PO (14:03)
[2022-01-16 16:56] VITALS: BP 91/63
[2022-01-16 17:24] VITALS: BP 91/63
== END 2022-01-16 18:00 | disposition home or self-care (01) | DRG 271 ==
LOC: ER 11:55 → TELE 19:05 → DOU IN ICU 23:14 → TELE-WESTW 01-13 10:25
PROVIDERS: ADMIT Nurse Practitioner Family; ATTEND Internal Medicine
PROC: 06CM3ZZ Extirpation of Matter from Right Femoral Vein, Percutaneous Approach (ICD-10-PCS; principal; 2022-01-10)
PROC: 06CC3ZZ Extirpation of Matter from Right Common Iliac Vein, Percutaneous Approach (ICD-10-PCS; 2022-01-10)
PROC: 067M3DZ Dilation of Right Femoral Vein with Intraluminal Device, Percutaneous Approach (ICD-10-PCS; 2022-01-10)
PROC: 067C3DZ Dilation of Right Common Iliac Vein with Intraluminal Device, Percutaneous Approach (ICD-10-PCS; 2022-01-10)
PROC: 067F3DZ Dilation of Right External Iliac Vein with Intraluminal Device, Percutaneous Approach (ICD-10-PCS; 2022-01-10)
PROC: 06C03ZZ Extirpation of Matter from Inferior Vena Cava, Percutaneous Approach (ICD-10-PCS; 2022-01-10)
PROC: 05HB33Z Insertion of Infusion Device into Right Basilic Vein, Percutaneous Approach (ICD-10-PCS; 2022-01-10)
PROC: B54MZZA Ultrasonography of Right Upper Extremity Veins, Guidance (ICD-10-PCS; 2022-01-10)
DX: I82.411 Acute embolism and thrombosis of right femoral vein (principal); E27.40 Unspecified adrenocortical insufficiency; L03.115 Cellulitis of right lower limb; I82.421 Acute embolism and thrombosis of right iliac vein; I83.90 Asymptomatic varicose veins of unspecified lower extremity; S80.11XA Contusion of right lower leg, initial encounter; E66.9 Obesity, unspecified; G40.909 Epilepsy, unspecified, not intractable, without status epilepticus; G89.29 Other chronic pain; M79.7 Fibromyalgia; D64.9 Anemia, unspecified; N30.90 Cystitis, unspecified without hematuria; J44.9 Chronic obstructive pulmonary disease, unspecified; E66.3 Overweight; R73.03 Prediabetes; Z79.01 Long term (current) use of anticoagulants; Z79.899 Other long term (current) drug therapy; Z88.6 Allergy status to analgesic agent; Z88.8 Allergy status to other drugs, medicaments and biological substances; Z86.711 Personal history of pulmonary embolism; Z90.710 Acquired absence of both cervix and uterus; Z95.828 Presence of other vascular implants and grafts; Z98.84 Bariatric surgery status; Z90.49 Acquired absence of other specified parts of digestive tract; Z68.31 Body mass index [BMI] 31.0-31.9, adult
CPT/HCPCS: 36415; 37187; 37238; 37252; 71046; 73590; 73700; 75898; 76881; 80048; 80053; 81001; 82550; 82607; 82746; 83735; 83880; 84100; 84439; 84443; 84484; 85025; 85379; 85610; 85730; 87081; 87086; 87426; 93005; 93926; 93970; 93971; 96361; 96374; 96375; 99152; 99153; G0378; J0696; J2001; J2250; J2405; J3490; Q9967

== ENCOUNTER 2022-04-28 11:38 | Emergency (ER) | payer OTHER, MEDICAID ==
[~2022-04-28] VITALS: Ht 180.3 cm; Wt 83.0 kg
[~2022-04-28 11:38] MED LIST changes: +APIX5TAB PO
[2022-04-28] MEDS ORDERED: HYDROmorphone HCL 2 MG/ML VL/or syr IV ONE (12:30)
[2022-04-28 12:31] LABS: Basophils # (auto) 0 10 ^3/uL (0-0.2); Basophils % (auto) 0.7 % (0.0-2.0); Eosinophils # (auto) 0 10 ^3/uL (0-0.8); Eosinophils % (auto) 0.5 % (0.0-7.0); Hematocrit 39.5 % (36.0-46.0); Hemoglobin 12.6 g/dL (12.2-16.2); Lymphocytes # (auto) 0.6 10 ^3/uL (0.4-5.4); Lymphocytes % (auto) 7.6 % (10.0-50.0); Mean Corpuscular Hemoglobin 30.4 pg (28.0-32.0); Mean Corpuscular Volume 94.9 fL (80.0-100.0); Monocytes # (auto) 0.4 10 ^3/uL (0-1.3); Neutrophils # (auto) 6.6 10 ^3/uL (1.6-8.6); Neutrophils % (auto) 86.2 % (37.0-80.0); Red Blood Cells 4.16 10^6/uL (4.0-5.20); White Blood Cell 7.6 10^3/uL (4.4-10.8)
[2022-04-28] MEDS ORDERED: HYDROmorphone HCL 2 MG/ML VL/or syr IM ONE (12:45)
[2022-04-28 12:50] LABS: Albumin 3.7 g/dL (3.4-5.0); BUN/Creatinine Ratio 12.7; Bilirubin, Total 0.5 mg/dL (0.2-1.0); Calcium 8.5 mg/dL (8.5-10.1); Potassium 4.8 mmol/L (3.5-5.1); Total Protein 7.3 g/dL (6.4-8.2)
[2022-04-28 14:00] VITALS: BP 112/70
== END 2022-04-28 14:20 | disposition home or self-care (01) ==
LOC: ER 11:38
DX: R07.89 Other chest pain (principal); J44.9 Chronic obstructive pulmonary disease, unspecified; Z90.49 Acquired absence of other specified parts of digestive tract; Z79.899 Other long term (current) drug therapy; Z79.2 Long term (current) use of antibiotics; Z88.5 Allergy status to narcotic agent; Z88.6 Allergy status to analgesic agent; Z88.8 Allergy status to other drugs, medicaments and biological substances; Z91.018 Allergy to other foods
CPT/HCPCS: 36415; 71045; 80053; 85025; 93005; 96372; 99285; J1170

== ENCOUNTER 2022-09-06 13:09 | Emergency (ER) | payer OTHER, MEDICAID ==
[~2022-09-06] VITALS: Ht 180.3 cm; Wt 81.6 kg
[~2022-09-06 13:09] MED LIST changes: +FOLI-119 PO; -FOLI1TAB6 PO; -HYDR-4623 PO; +HYDR-4792 PO; +HYDR20TA19 PO; -HYDR20TA20 PO; -LEVE500T32 PO; +LEVE500T40 PO
[2022-09-06 14:12] LABS: Basophils # (auto) 0.1 10 ^3/uL (0-0.2); Eosinophils # (auto) 0.1 10 ^3/uL (0-0.8); Monocytes # (auto) 0.3 10 ^3/uL (0-1.3); Nucleated Red Blood Cells % 0.1 %
[2022-09-06 14:14] LABS: Basophils % (auto) 0.9 % (0.0-2.0); Eosinophils % (auto) 1.4 % (0.0-7.0); Hematocrit 38.2 % (36.0-46.0); Hemoglobin 11.6 g/dL (12.2-16.2); Lymphocytes # (auto) 1.4 10 ^3/uL (0.4-5.4); Lymphocytes % (auto) 20.6 % (10.0-50.0); Mean Corpuscular Hemoglobin 28.9 pg (28.0-32.0); Mean Corpuscular Hgb Conc. 30.3 g/dL (32.0-36.0); Mean Corpuscular Volume 95.4 fL (80.0-100.0); Monocytes % (auto) 5.2 % (0.0-12.0); Neutrophils # (auto) 4.8 10 ^3/uL (1.6-8.6); Neutrophils % (auto) 71.9 % (37.0-80.0); Red Blood Cells 4.01 10^6/uL (4.0-5.20); Red Cell Distribution Width 21.9 % (11.8-14.3); White Blood Cell 6.6 10^3/uL (4.4-10.8)
[2022-09-06 14:31] LABS: Albumin 2.9 g/dL (3.4-5.0); Calcium 7.8 mg/dL (8.5-10.1); Potassium 3.4 mmol/L (3.5-5.1)
[2022-09-06 14:35] LABS: Bilirubin, Total 1.1 mg/dL (0.2-1.0); Total Protein 6.6 g/dL (6.4-8.2)
[2022-09-06 16:52] VITALS: BP 117/71
== END 2022-09-06 18:58 | disposition left against medical advice (07) ==
LOC: ER 13:09
DX: I24.9 Acute ischemic heart disease, unspecified (principal); J44.9 Chronic obstructive pulmonary disease, unspecified; Z98.890 Other specified postprocedural states; Z90.49 Acquired absence of other specified parts of digestive tract
CPT/HCPCS: 36415; 70450; 80053; 84484; 85025; 93005